=== PATIENT | male | born 1960 | race Asian ===

== ENCOUNTER → 2020-04-20 13:07 | Outpatient (CLI) | payer BC, SELFPAY ==
[2020-04-20] MEDS: COVID-19 VACC #1, MRNA(MOD) 100 MCG/0.5 ML VIAL IM (13:14)
== END ==
PROVIDERS: PCP Family Medicine; Visit Provider Internal Medicine
DX: Z23 Encounter for immunization (principal)
CPT/HCPCS: 0011A; 91301

== ENCOUNTER → 2020-05-17 10:10 | Outpatient (CLI) | payer BC, SELFPAY ==
[2020-05-17] MEDS: COVID-19 VACC #2, MRNA(MOD) 100 MCG/0.5 ML VIAL IM (10:19)
== END ==
PROVIDERS: PCP Family Medicine; Visit Provider Internal Medicine
DX: Z23 Encounter for immunization (principal)
CPT/HCPCS: 0012A; 91301

== ENCOUNTER → 2021-01-22 09:10 | Outpatient (CLI) | payer BC, SELFPAY ==
[2021-01-22 10:09] LABS: COVID19 -Nasal RAPID POSITIVE (Negative)
== END ==
PROVIDERS: PCP Family Medicine; Visit Provider Nurse Practitioner Family
DX: U07.1 COVID-19 (principal)
CPT/HCPCS: 87635

== ENCOUNTER 2023-02-24 18:45 | Emergency (ER) | payer MEDICARE, SELFPAY ==
[2023-02-24 18:50] VITALS: BP 186/84; PULSE 74; RESP 16; TEMP 36.5; O2SAT 95; BMI 28.2
--- NOTE | 2023-02-24 19:05 | ED_ITS ---
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 He is here in the emergency department for evaluation of urinary urgency and frequency and feeling like he is not emptying his bladder completely. No vomiting. He is a lon-xkengme-ogbfwsltc diabetic. No history of urinary tract infections. No abdominal pain. No flank pain. No fevers I did offer the translation line but the patient stated he was comfortable speaking an understanding our conversation. Related Data Previous Rx's Medication Instructions Recorded tamsulosin 0.4 mg capsule (Flomax) 0.4 mg PO DAILY #30 caps 02/24/23 Allergies Allergy/AdvReac Type Severity Reaction Status Date / Time No Known Drug Allergies Allergy Verified 02/24/23 18:58 Review of Systems Constitutional Constitutional: Reports system reviewed and no additional complaints, except as documented Cardiovascular Cardiovascular: Reports system reviewed and no additional complaints, except as documented Gastrointestinal Gastrointestinal: Reports system reviewed and no additional complaints, except as documented Genitourinary Genitourinary: Reports system reviewed and no additional complaints, except as documented Integumentary/Breasts Skin/Breast: Reports system reviewed and no additional complaints, except as documented Neurologic Neurologic: Reports system reviewed and no additional complaints, except as documented Hematologic/Lymphatic On Anticoagulants: No Patient History Medical History COVID-19 Social History Smoking Status: Never smoker Smoking Status: Never smoker Substance Use Type: does not use Exam Initial Vital Signs Initial Vital Signs: Vital Signs Temperature 97.7 F 02/24/23 18:50 Pulse Rate 74 02/24/23 18:50 Respiratory Rate 16 02/24/23 18:50 Blood Pressure 186/84 H 02/24/23 18:50 Pulse Oximetry 95 02/24/23 18:50 Oxygen Delivery Method Room Air 02/24/23 18:50 HENMT Head: normal to inspection and normocephalic Resp Effort & Inspection: normal respiratory effort Cardio Rate: regular rate GI Inspection: normal to inspection and non-distended Palpation: soft, No guarding and tender (Lower abdomen) Back/Spine/Pelvis Back: No CVA tenderness Skin General: no rashes or lesions noted Neuro General: patient alert, patient awake and moves all extremities Course Orders Ordered: ED Orders 02/24/23 19:18 Basic Metabolic Panel Stat Complete Blood Count AUTO DIFF Stat Tamsulosin HCl (Tamsulosin 0.4 Mg Capsule) 0.4 mg PO NOW ONE Stop: 02/24/23 19:53 Vital Signs Vital signs: Vital Signs - 8 hr 02/24/23 18:50 Temperature 97.7 F Pulse Rate 74 Respiratory Rate 16 Blood Pressure 186/84 H Pulse Oximetry 95 Oxygen Delivery Method Room Air Medical Decision Making Lab Data 02/24/23 19:18 02/24/23 19:18 Labs: Lab Results 02/24/23 Range/Units 19:18 WBC 8.6 (4.5-11.0) X10^3/uL RBC 5.12 (4.5-5.9) X10^6/uL Hgb 14.6 (13.5-17.5) g/dL Hct 43.5 (41-53) % MCV 84.9 (80-100) fL MCH 28.5 (26-34) PG MCHC 33.6 (30-36) % RDW 13.5 (11.6-14.8) % Plt Count 233 (150-400) X10^3/uL Neut % (Auto) 59.8 (50-75) % Lymph % (Auto) 28.0 (25-40) % [place] % (Auto) 7.4 (3-14) % Eos % (Auto) 3.6 (2-4) % Baso % (Auto) 1.2 (0-2) % Neut # (Auto) 5200 (4502-5363) /uL Lymph # (Auto) 2400 (8358-6686) /uL [place] # (Auto) 600 (0-900) /uL Eos # (Auto) 300 (0-450) /uL Baso # (Auto) 100 (0-100) /uL Sodium 137 (137-145) mmol/L Potassium 3.7 (3.4-5.1) mmol/L Chloride 100 (98-107) mmol/L Carbon Dioxide 28 (22-32) mmol/L BUN 13 (9-20) mg/dL Creatinine 0.96 (0.66-1.25) mg/dL Estimated GFR > 60 (>60) mL/min BUN/Creatinine Ratio 13.5 (6-22) Glucose 186 H (80-110) mg/dL Calcium 9.6 (8.4-10.2) mg/dL Urine Dip Bedside Urine Glucose 500 mg/dl Bedside Urine Bilirubin - Negative Bedside Urine Ketone - Negative Urine Specific [place] 1.005 Bedside Urine Occult Blood - Negative Bedside Urine pH 6.0 Bedside Urine Protein - Negative Bedside Urine Urobilinogen - Negative Bedside Urine Nitrite - Negative Bedside Urine Leukocytes - Negative Esterase Point of care testing: Urine Dip Bedside Urine Glucose 500 mg/dl Bedside Urine Bilirubin - Negative Bedside Urine Ketone - Negative Urine Specific [place] 1.005 Bedside Urine Occult Blood - Negative Bedside Urine pH 6.0 Bedside Urine Protein - Negative Bedside Urine Urobilinogen - Negative Bedside Urine Nitrite - Negative Bedside Urine Leukocytes - Negative Esterase MDM Narrative Medical decision making narrative: Urinalysis today is not consistent with a urinary tract infection however he was started on antibiotics yesterday by his primary care doctor's office. His labs are unremarkable. He is a known jhv-lulmlew-eaznxakih diabetic. A postvoid residual bladder scan shows between 200 and 300 cc of urine in his bladder. I did discuss this with him. I do not feel that putting a catheter in today would be beneficial. We will start him on Flomax. He was instructed to continue to take his antibiotics. Will have him follow-up with urology. He was given return precautions. He expressed understanding and agreement. Discharge Plan Departure Patient Disposition: Home Clinical Impression: Dysuria Instructions: DI for Dysuria -- Adult Activity Restrictions/Additional Instructions: I recommend that you continue to take the antibiotics that you were started on by your primary doctor. We are going to start a new medicine called Flomax. This medicine was sent to [facility]. Please start taking it tomorrow as directed. Also recommend you contact Urology at the number provided below. Return to the emergency department for new symptoms. Prescriptions: New tamsulosin [Flomax] 0.4 mg capsule 0.4 mg PO DAILY Qty: 30 2RF Referrals: Louise Hannah MD [Physician] - Rosanna Bullock MD [Primary Care Provider] - Stand Alone Forms: Patient Portal/API
[2023-02-24 19:31] LABS: Add Manual Diff / Slide Review NO; Basophils Absolute Auto 100 /uL (0-100); Basophils Percent Auto 1.2 % (0-2); Eosinophils Absolute Auto 300 /uL (0-450); Eosinophils Percent Auto 3.6 % (2-4); Hematocrit 43.5 % (41-53); Hemoglobin 14.6 g/dL (13.5-17.5); Lymphocytes Absolute Auto 2400 /uL (1100-4500); Mean Corpuscular HGB Conc 33.6 % (30-36); Mean Corpuscular Hemoglobin 28.5 PG (26-34); Mean Corpuscular Volume 84.9 fL (80-100); Monocytes Absolute Auto 600 /uL (0-900); Monocytes Percent Auto 7.4 % (3-14); Neutrophils Absolute Auto 5200 /uL (1500-7000); Neutrophils Percent Auto 59.8 % (50-75); Platelet Count 233 X10^3/uL (150-400); Red Blood Cell Count 5.12 X10^6/uL (4.5-5.9); Red Cell Distribution Width 13.5 % (11.6-14.8); White Blood Cell Count 8.6 X10^3/uL (4.5-11.0)
[2023-02-24 19:42] LABS: BUN Creatinine Ratio 13.5 (6-22); Blood Urea Nitrogen 13 mg/dL (9-20); Calcium 9.6 mg/dL (8.4-10.2); Carbon Dioxide 28 mmol/L (22-32); Chloride 100 mmol/L (98-107); Estimated Glomerular Filt Rate > 60 mL/min (>60); Glucose 186 mg/dL (80-110); HEMOLYSIS < 15 (0-50); Potassium 3.7 mmol/L (3.4-5.1); Sodium 137 mmol/L (137-145)
[2023-02-24] MEDS: TAMSULOSIN 0.4 MG CAPSULE PO (19:56)
[2023-02-24 20:00] VITALS: BP 141/79; PULSE 77; RESP 18; O2SAT 96
== END 2023-02-24 20:01 | disposition home or self-care (01) ==
PROVIDERS: Emergency Provider Emergency Medicine; PCP Family Medicine
DX: R30.0 Dysuria (principal); E11.9 Type 2 diabetes mellitus without complications; Z79.4 Long term (current) use of insulin
CPT/HCPCS: 36415; 51798; 80048; 81003; 85025; 99284

== ENCOUNTER → 2023-09-16 09:25 | Outpatient (CLI) | payer MEDICARE, SELFPAY ==
[2023-09-18 11:00] LABS: PSA Free % 13.6 % (.); PSA, Total 6.9 ng/mL (0.0-4.0)
== END ==
PROVIDERS: Referring Provider Specialist; Visit Provider Specialist
DX: R97.20 Elevated prostate specific antigen [PSA] (principal)
CPT/HCPCS: 36415; 84153; 84154

== ENCOUNTER 2023-10-27 16:46 | Inpatient (IN) | payer MEDICARE, SELFPAY ==
[2023-10-27] VITALS (16 sets, daily range): BP systolic 90–154; BP diastolic 55–75; PULSE 101–128; RESP 16–30; TEMP 35.7–39; O2SAT 93–97; BMI 26.6; BMI 27.1
--- NOTE | 2023-10-27 16:54 | DI.RAD.S_ITS ---
PROCEDURE: XR CHEST 1V INDICATIONS: suspected sepsis TECHNIQUE: One view of the chest was acquired. COMPARISON: None. FINDINGS: Surgical changes and devices: None. Lungs and pleura: Lungs are clear. No pleural effusions or pneumothorax. Mediastinum: Mediastinal contours appear normal. Heart size is normal. Bones and chest wall: No suspicious bony lesions. Overlying soft tissues appear unremarkable. IMPRESSION: No acute cardiopulmonary abnormality is seen. Dictated by: Ulises Fox M.D. on 10/27/2023 at 17:48 Approved by: Ulises Fox M.D. on 10/27/2023 at 17:49
--- NOTE | 2023-10-27 17:09 | EKG_ITS ---
[address] [address] Test Date: 2023-10-27 Pat Name: Anthony Chapa Department: [facility] Room: Gender: Male Radiology Director: mary lou : 1960 Requested By: Order Number: [id number] Reading MD: Dae Mata MD Measurements Intervals [place] Rate: 120 P: 20 MO: 126 QRS: 90 QRSD: 92 T: 32 QT: 296 QTc: 418 Interpretive Statements Sinus tachycardia Rightward axis NO PRIOR TRACING Electronically Signed On 10-28-2023 7:45:13 PDT by Dae Mata MD
[2023-10-27] MEDS: SODIUM CHLORIDE 0.9% 1,000 ML 1000 ML IV (17:19)
--- NOTE | 2023-10-27 17:24 | ED.FEVER ---
HPI - Fever General Chief Complaint: Fever Stated Complaint: shaking, cold Time Seen by Provider: 10/27/23 17:07 Related Data Home Medications Medication Instructions Recorded Confirmed tamsulosin 0.4 mg capsule (Flomax) 0.4 mg PO BEDTIME 09/30/23 Allergies Allergy/AdvReac Type Severity Reaction Status Date / Time No Known Drug Allergies Allergy Verified 02/24/23 18:58 Patient History Medical History (Updated 09/30/23 @ 10:51 by Louise Hannah MD) Glucosuria BPH w urinary obs/LUTS Elevated PSA COVID-19 Social History Smoking Status: Never smoker Smoking Status: Never smoker alcohol intake frequency: other Substance Use Type: does not use Exam Initial Vital Signs Initial Vital Signs: Vital Signs Temperature 102.2 F H 10/27/23 16:49 Pulse Rate 128 H 10/27/23 16:49 Respiratory Rate 22 10/27/23 16:49 Blood Pressure 154/75 H 10/27/23 16:49 Pulse Oximetry 96 10/27/23 16:49 Oxygen Delivery Method Room Air 10/27/23 16:49 Course Orders Ordered: ED Orders 10/27/23 16:54 XR chest 1V Stat Blood Culture Stat Complete Blood Count AUTO DIFF Stat Comprehensive Metabolic Panel Stat Lactate (Lactic Acid) Stat Lipase Stat PTT Partial Thromboplastin Yobany Stat Procalcitonin Stat Prothrombin Time INR Stat EKG-12 Lead Stat RT Consult Eval and Treat NOW 10/27/23 17:02 Respiratory Panel (Film Array) Stat Sodium Chloride (Normal Saline 0.9%) 1,000 mls @ 1,000 mls/hr IV BOLUS ONE Stop: 10/27/23 17:53 Last Admin: 10/27/23 17:19 Dose: 1,000 mls/hr Documented By: SB Ondansetron HCl (Ondansetron 4 Mg/2 Ml Inj) 4 mg IV NOW PRN PRN Reason: Nausea And Vomiting Ondansetron HCl (Ondansetron 4 Mg Odt) 4 mg SL NOW PRN PRN Reason: Nausea And Vomiting Vital Signs Vital signs: Vital Signs - 8 hr 10/27/23 16:49 Temperature 102.2 F H Pulse Rate 128 H Respiratory Rate 22 Blood Pressure 154/75 H Pulse Oximetry 96 Oxygen Delivery Method Room Air Discharge Plan Departure Prescriptions: No Action tamsulosin [Flomax] 0.4 mg capsule 0.4 mg PO BEDTIME Referrals: Miscellaneous,Doctor, MD [Primary Care Provider] -
[2023-10-27 17:34] LABS: Add Manual Diff / Slide Review NO; Basophils Absolute Auto 0 /uL (0-100); Basophils Percent Auto 0.9 % (0-2); Eosinophils Absolute Auto 0 /uL (0-450); Eosinophils Percent Auto 0.3 % (2-4); Hematocrit 41.9 % (41-53); Hemoglobin 14.4 g/dL (13.5-17.5); Lymphocytes Absolute Auto 1200 /uL (1100-4500); Lymphocytes Percent Auto 24.3 % (25-40); Mean Corpuscular HGB Conc 34.4 % (30-36); Mean Corpuscular Hemoglobin 29.3 PG (26-34); Monocytes Absolute Auto 0 /uL (0-900); Neutrophils Absolute Auto 3700 /uL (1500-7000); Neutrophils Percent Auto 73.5 % (50-75); Platelet Count 162 X10^3/uL (150-400); Red Blood Cell Count 4.93 X10^6/uL (4.5-5.9); Red Cell Distribution Width 13.3 % (11.6-14.8); White Blood Cell Count 5.1 X10^3/uL (4.5-11.0)
[2023-10-27 17:41] LABS: INR 1.1 (0.9-1.3); Prothrombin Time 12.3 SECONDS (9.4-12.5)
[2023-10-27 17:43] LABS: PTT Partial Thromboplastin Tim 30 SECONDS (25.1-36.5)
[2023-10-27 17:44] LABS: Urine Volume 10mL (spun)
[2023-10-27 17:45] LABS: Bacteria Urine None Seen; RBC Urine 1-5/HPF (0-5/HPF); Squamous Epithelial Cell Urine None Seen (0-5/HPF); WBC Urine None Seen (0-5/HPF)
[2023-10-27 17:50] LABS: Alanine Aminotransferase 89 IU/L (<50); Albumin 4.4 g/dL (3.5-5.0); Albumin Globulin Ratio 1.3 (1.0-2.8); Alkaline Phosphatase 92 U/L (38-126); Aspartate Aminotransferase 73 IU/L (17-59); BUN Creatinine Ratio 13.8 (6-22); Bilirubin Total 1.2 mg/dL (0.2-1.3); Blood Urea Nitrogen 12 mg/dL (9-20); Calcium 9.1 mg/dL (8.4-10.2); Carbon Dioxide 19 mmol/L (22-32); Chloride 104 mmol/L (98-107); Estimated Glomerular Filt Rate > 60 mL/min (>60); Globulin 3.3 g/dL (1.7-4.1); Glucose 176 mg/dL (80-110); HEMOLYSIS < 15 (0-50); Lipase 74 U/L (23-300); Potassium 3.7 mmol/L (3.4-5.1); Sodium 136 mmol/L (137-145); Total Protein 7.7 g/dL (6.3-8.2)
[2023-10-27 18:00] LABS: Lactate (Lactic Acid) 5.1 mmol/L (0.7-2.1)
[2023-10-27 18:07] LABS: Procalcitonin 0.593 ng/mL (<0.5)
[2023-10-27] MEDS: ACETAMINOPHEN IV 1,000 MG/100 ML VIAL 400 MG IV (18:07)
--- NOTE | 2023-10-27 18:07 | ED_ITS ---
HPI - General Adult General Chief complaint: Fever Stated complaint: shaking, cold Time Seen by Provider: 10/27/23 17:07 Source: RN notes reviewed and old records reviewed Mode of arrival: Family Vehicle Limitations: no limitations History of Present Illness HPI narrative: 63-year-old with complaint of chills, fevers and myalgias for the past 3 days. Patient had a home COVID test was negative his daughter at bedside states she has had COVID recently. He had ibuprofen about 4 hours prior to arrival. Patient denies headache or neck pain, no chest pain or shortness of breath he has cough he denies any states no abdominal pain he has felt a little bit bloated. He has had no nausea vomiting. Denies any diarrhea or constipation. Chronic frequency particularly at nighttime but no new changes to urination, no dysuria were sense of urgency that is new. Denies any swelling of extremities. No rash or skin changes. Patient has a history of diabetes, enlarged prostate and dyslipidemia. Has a remote history of hernia repair. No tobacco, alcohol or recreational drugs. No known drug allergies. Follows with primary care at [facility] [place] Related Data Home Medications Medication Instructions Recorded Confirmed tamsulosin 0.4 mg capsule (Flomax) 0.4 mg PO BEDTIME 09/30/23 10/27/23 metformin 1,000 mg tablet 1,000 mg PO DAILY 10/27/23 10/27/23 Allergies Allergy/AdvReac Type Severity Reaction Status Date / Time No Known Drug Allergies Allergy Verified 02/24/23 18:58 Review of Systems Review of Systems ROS Unobtainable: All systems reviewed & are unremarkable except as noted in HPI and below Patient History Medical History (Updated 10/28/23 @ 02:42 by Luis Marshall MD) Diabetes Glucosuria BPH w urinary obs/LUTS Elevated PSA COVID-19 Social History household members: family Smoking Status: Never smoker alcohol intake: former Smoking Status: Never smoker alcohol intake frequency: other Substance Use Type: does not use Exam Narrative Exam Narrative: GEN: well nourished, well appearing male, alert and oriented x 3, patient appears to be in mild distress. Patient is warm to touch. HEENT: Atraumatic, pupils are equal round reactive to light, extraocular movements are intact, nares are clear, TMs are clear with no fluid, there is no conjunctival pallor. Throat is clear without any exudates, erythema, tonsillar enlargement or uvular deviation, no cervical lymphadenopathy, neck is supple with full range of motion, no meningeal signs. HEART: Regular rate and rhythm without murmur, clicks, rubs. Pulses are equal in upper and lower extremities LUNGS:Lungs clear to auscultation, no wheezes, rales, crackles, chest moves symmetrically ABD:bowel sounds normal, soft, nondistended. Non-tender, no guarding, rebound, rigidity, no masses noted, no hepatosplenomegaly :No CVA tenderness MSCL: Non-tender, no muscle atrophy, muscles strength 5/5 upper and lower extremities, full range of motion, normal gait NEURO:CN 2-12 intact, sensation normal. SKIN: No rash, erythema or other skin changes. Initial Vital Signs Initial Vital Signs: Vital Signs Temperature 102.2 F H 10/27/23 16:49 Pulse Rate 128 H 10/27/23 16:49 Respiratory Rate 22 10/27/23 16:49 Blood Pressure 154/75 H 10/27/23 16:49 Pulse Oximetry 96 10/27/23 16:49 Oxygen Delivery Method Room Air 10/27/23 16:49 Course Orders Ordered: Acetaminophen (Acetaminophen 325 Mg Tablet) 650 mg PO Q6H PRN PRN Reason: Fever/Mild Pain (1-3) Last Admin: 10/28/23 18:29 Dose: 650 mg Documented By: Admin: 10/28/23 09:21 Dose: 650 mg Documented By: Admin: 10/28/23 02:16 Dose: 650 mg Documented By: Enoxaparin Sodium (Enoxaparin 40 Mg/0.4 Ml Syringe) 40 mg SUBCUT DAILY [facility] Last Admin: 10/28/23 09:22 Dose: 40 mg Documented By: OSWALDO Sodium Chloride (Normal Saline 0.9%) 1,000 mls @ 100 mls/hr IV CONT ODILIA Last Admin: 10/29/23 01:07 Dose: 100 mls/hr Documented By: Infusion: 10/29/23 01:05 Dose: Infused Documented By: Admin: 10/28/23 14:48 Dose: 100 mls/hr Documented By: Infusion: 10/28/23 12:17 Dose: Infused Documented By: Admin: 10/28/23 02:17 Dose: 100 mls/hr Documented By: Dextrose (D10w) 100 mls @ 1,200 mls/hr IV PRN PRN PRN Reason: Hypoglycemia Cefepime HCl 2 gm/ Sodium (Chloride) 100 mls @ 200 mls/hr IV Q12H [facility] Last Infusion: 10/28/23 17:24 Dose: Infused Documented By: Admin: 10/28/23 16:54 Dose: 200 mls/hr Documented By: Infusion: 10/28/23 06:04 Dose: Infused Documented By: Admin: 10/28/23 05:34 Dose: 200 mls/hr Documented By: Insulin Human Lispro (Insulin Lispro 100 Unit/Ml 3ml Vial) 0 unit SUBCUT ACHS [facility]; Protocol Last Admin: 10/28/23 21:32 Dose: 1 unit Documented By: KENNETH Co-signed By: ROSALEE Admin: 10/28/23 17:04 Dose: 2 unit Documented By: RANGEL Co-signed By: OSWALDO Admin: 10/28/23 12:16 Dose: 2 unit Documented By: RANGEL Co-signed By: OSWALDO Admin: 10/28/23 08:28 Dose: 1 unit Documented By: RANGEL Co-signed By: OSWALDO Ketorolac Tromethamine (Ketorolac 30 Mg/Ml Vial) 15 mg IV Q6H PRN PRN Reason: pain, fever Stop: 11/03/23 01:59 Metformin HCl (Metformin Hcl 500 Mg Tablet) 1,000 mg PO DAILY [facility] Last Admin: 10/28/23 09:21 Dose: 1,000 mg Documented By: OSWALDO Naloxone HCl (Naloxone 0.4 Mg/Ml Vial) 0.2 mg IV Q2MIN PRN PRN Reason: Opiate Reversal Ondansetron HCl (Ondansetron 4 Mg/2 Ml Inj) 4 mg IV NOW PRN PRN Reason: Nausea And Vomiting Ondansetron HCl (Ondansetron 4 Mg/2 Ml Inj) 4 mg IV Q8HR PRN PRN Reason: Nausea And Vomiting Sodium Chloride (Sodium Chloride 0.9% Flush) 10 ml IV BID [facility] Last Admin: 10/28/23 21:37 Dose: 10 ml Documented By: Admin: 10/28/23 09:22 Dose: 10 ml Documented By: OSWALDO Tamsulosin HCl (Tamsulosin 0.4 Mg Capsule) 0.4 mg PO BEDTIME ODILIA Last Admin: 10/28/23 20:43 Dose: 0.4 mg Documented By: Admin: 10/27/23 21:46 Dose: 0.4 mg Documented By: Discontinued Medications Sodium Chloride (Normal Saline 0.9%) 1,000 mls @ 1,000 mls/hr IV BOLUS ONE Stop: 10/27/23 17:53 Last Infusion: 10/27/23 18:10 Dose: Infused Documented By: Admin: 10/27/23 17:19 Dose: 1,000 mls/hr Documented By: SB Acetaminophen (Ofirmev) 1,000 mg in 100 mls @ 400 mls/hr IV NOW ONE Stop: 10/27/23 17:39 Last Infusion: 10/27/23 18:31 Dose: Infused Documented By: Admin: 10/27/23 18:07 Dose: 400 mls/hr Documented By: SB Ceftriaxone Sodium 1,000 mg/ (Sodium Chloride) 100 mls @ 200 mls/hr IV NOW ONE Stop: 10/27/23 18:26 Last Infusion: 10/27/23 19:30 Dose: Infused Documented By: Admin: 10/27/23 18:54 Dose: 200 mls/hr Documented By: SPF Vancomycin HCl (Vancomycin) 1,250 mg in 250 mls @ 250 mls/hr IV NOW ONE Stop: 10/27/23 19:25 Last Infusion: 10/27/23 21:04 Dose: Infused Documented By: Admin: 10/27/23 19:47 Dose: 250 mls/hr Documented By: GC Lactated Ringer's (Lactated Ringers) 2,358 mls @ 786 mls/hr 30 ml/kg infuse over 3 hr (2358 ml) IV NOW ONE Stop: 10/27/23 21:24 Last Admin: 10/27/23 18:53 Dose: 786 mls/hr Documented By: SPF Vancomycin HCl (Vancomycin) 1,000 mg in 200 mls @ 200 mls/hr IV Q12H [facility] Last Admin: 10/28/23 06:17 Dose: 200 mls/hr Documented By: Vancomycin HCl (Vancomycin) 1,250 mg in 250 mls @ 200 mls/hr IV Q12H [facility] Ketorolac Tromethamine (Ketorolac 30 Mg/Ml Vial) 15 mg IV NOW ONE Stop: 10/27/23 18:27 Last Admin: 10/27/23 18:54 Dose: 15 mg Documented By: HENNA Ketorolac Tromethamine (Ketorolac 30 Mg/Ml Vial) 30 mg IV NOW ONE Stop: 10/28/23 20:02 Last Admin: 10/28/23 20:43 Dose: 30 mg Documented By: KENNETH Ondansetron HCl (Ondansetron 4 Mg Odt) 4 mg SL NOW PRN PRN Reason: Nausea And Vomiting Last Admin: 10/28/23 19:31 Dose: 4 mg Documented By: RANGEL Pantoprazole Sodium (Pantoprazole 40 Mg Vial) 40 mg IV NOW ONE Stop: 10/28/23 04:55 Last Admin: 10/28/23 05:34 Dose: 40 mg Documented By: Vancomycin HCl (Vancomycin Per Pharmacy) 1 request MISC NOW PRN PRN Reason: sepsis Vancomycin HCl (Vancomycin Trough) 1 [place] [facility] [place] [facility] Stop: 10/29/23 05:31 Vancomycin HCl (Vancomycin Peak) 1 [place] [facility] [place] [facility] Stop: 10/29/23 08:01 Vital Signs Vital signs: Vital Signs - 8 hr 10/27/23 16:49 10/27/23 16:57 10/27/23 16:57 Temperature 102.2 F H Pulse Rate 128 H 120 H Respiratory Rate 22 30 H Blood Pressure 154/75 H 142/72 H Pulse Oximetry 96 95 Oxygen Delivery Method Room Air 10/27/23 17:00 10/27/23 17:18 10/27/23 17:18 Temperature Pulse Rate 119 H 118 H Respiratory Rate 28 H 28 H Blood Pressure 121/67 Pulse Oximetry 93 94 Oxygen Delivery Method 10/27/23 17:30 10/27/23 17:33 10/27/23 17:33 Temperature Pulse Rate 109 H 115 H Respiratory Rate 19 22 Blood Pressure 112/58 L Pulse Oximetry 93 95 Oxygen Delivery Method 10/27/23 18:00 10/27/23 18:00 10/27/23 18:30 Temperature 99.9 F H Pulse Rate 107 H 104 H Respiratory Rate 21 20 Blood Pressure 107/56 L 96/55 L Pulse Oximetry 96 97 Oxygen Delivery Method 10/27/23 19:05 Temperature Pulse Rate 101 H Respiratory Rate 16 Blood Pressure 97/56 L Pulse Oximetry 95 Oxygen Delivery Method Room Air Medical Decision Making Lab Data 10/28/23 03:22 10/28/23 03:22 Labs: Lab Results 10/27/23 10/27/23 10/27/23 Range/Units 17:00 17:02 17:22 WBC 5.1 (4.5-11.0) X10^3/uL RBC 4.93 (4.5-5.9) X10^6/uL Hgb 14.4 (13.5-17.5) g/dL Hct 41.9 (41-53) % MCV 85.0 (80-100) fL MCH 29.3 (26-34) PG MCHC 34.4 (30-36) % RDW 13.3 (11.6-14.8) % Plt Count 162 (150-400) X10^3/uL Neut % (Auto) 73.5 (50-75) % Lymph % (Auto) 24.3 L (25-40) % Owen % (Auto) 1.0 L (3-14) % Eos % (Auto) 0.3 L (2-4) % Baso % (Auto) 0.9 (0-2) % Neut # (Auto) 3700 (6275-8657) /uL Lymph # (Auto) 1200 (3341-6552) /uL Owen # (Auto) 0 (0-900) /uL Eos # (Auto) 0 (0-450) /uL Baso # (Auto) 0 (0-100) /uL PT 12.3 (9.4-12.5) SECONDS INR 1.1 (0.9-1.3) APTT 30 (25.1-36.5) SECONDS Sodium 136 L (137-145) mmol/L Potassium 3.7 (3.4-5.1) mmol/L Chloride 104 (98-107) mmol/L Carbon Dioxide 19 L (22-32) mmol/L BUN 12 (9-20) mg/dL Creatinine 0.87 (0.66-1.25) mg/dL Estimated GFR > 60 (>60) mL/min BUN/Creatinine Ratio 13.8 (6-22) Glucose 176 H (80-110) mg/dL Lactate 5.1 H* (0.7-2.1) mmol/L Calcium 9.1 (8.4-10.2) mg/dL Total Bilirubin 1.2 (0.2-1.3) mg/dL AST 73 H (17-59) IU/L ALT 89 H (<50) IU/L Alkaline Phosphatase 92 (38-126) U/L Total Protein 7.7 (6.3-8.2) g/dL Albumin 4.4 (3.5-5.0) g/dL Globulin 3.3 (1.7-4.1) g/dL Albumin/Globulin Ratio 1.3 (1.0-2.8) Lipase 74 (23-300) U/L Procalcitonin 0.593 H (<0.5) ng/mL Urine RBC 1-5/hpf (0-5/HPF) Urine WBC None seen (0-5/HPF) Ur Squamous Epith Cells None seen (0-5/HPF) Urine Bacteria None seen (None) Vol Urine Centrifuged 10ml (spun) Chlamy pneumoniae PCR Not detected (Not Detect) Adenovirus (PCR) Not detected (Not Detect) B.parapertussis DNA PCR Not detected (Not Detecte) Coronavirus OC43 (PCR) Not detected (Not Detect) Coronavirus HKU1 (PCR) Not detected (Not Detect) Coronavirus 229E (PCR) Not detected (Not Detect) SARS-CoV-2 (PCR) Not detected (Not Detecte) Coronavirus NL63 (PCR) Not detected (Not Detect) Human Metapneumovir PCR Not detected (Not Detect) Influenza Type A (PCR) Not detected (Not Detect) Influenza Type B (PCR) Not detected (Not Detect) M. pneumoniae (PCR) Not detected (Not Detect) Parainfluenza 1 (PCR) Not detected (Not Detect) Parainfluenza 2 (PCR) Not detected (Not Detect) Parainfluenza 3 (PCR) Not detected (Not Detect) Parainfluenza 4 (PCR) Not detected (Not Detect) RSV (PCR) Not detected (Not Detect) Entero/Rhino (PCR) Not detected (Not Detect) 10/27/23 Range/Units 19:25 WBC (4.5-11.0) X10^3/uL RBC (4.5-5.9) X10^6/uL Hgb (13.5-17.5) g/dL Hct (41-53) % MCV (80-100) fL MCH (26-34) PG MCHC (30-36) % RDW (11.6-14.8) % Plt Count (150-400) X10^3/uL Neut % (Auto) (50-75) % Lymph % (Auto) (25-40) % Owen % (Auto) (3-14) % Eos % (Auto) (2-4) % Baso % (Auto) (0-2) % Neut # (Auto) (5415-9368) /uL Lymph # (Auto) (1162-7520) /uL Owen # (Auto) (0-900) /uL Eos # (Auto) (0-450) /uL Baso # (Auto) (0-100) /uL PT (9.4-12.5) SECONDS INR (0.9-1.3) APTT (25.1-36.5) SECONDS Sodium (137-145) mmol/L Potassium (3.4-5.1) mmol/L Chloride (98-107) mmol/L Carbon Dioxide (22-32) mmol/L BUN (9-20) mg/dL Creatinine (0.66-1.25) mg/dL Estimated GFR (>60) mL/min BUN/Creatinine Ratio (6-22) Glucose (80-110) mg/dL Lactate 2.0 (0.7-2.1) mmol/L Calcium (8.4-10.2) mg/dL Total Bilirubin (0.2-1.3) mg/dL AST (17-59) IU/L ALT (<50) IU/L Alkaline Phosphatase (38-126) U/L Total Protein (6.3-8.2) g/dL Albumin (3.5-5.0) g/dL Globulin (1.7-4.1) g/dL Albumin/Globulin Ratio (1.0-2.8) Lipase (23-300) U/L Procalcitonin (<0.5) ng/mL Urine RBC (0-5/HPF) Urine WBC (0-5/HPF) Ur Squamous Epith Cells (0-5/HPF) Urine Bacteria (None) Vol Urine Centrifuged Chlamy pneumoniae PCR (Not Detect) Adenovirus (PCR) (Not Detect) B.parapertussis DNA PCR (Not Detecte) Coronavirus OC43 (PCR) (Not Detect) Coronavirus HKU1 (PCR) (Not Detect) Coronavirus 229E (PCR) (Not Detect) SARS-CoV-2 (PCR) (Not Detecte) Coronavirus NL63 (PCR) (Not Detect) Human Metapneumovir PCR (Not Detect) Influenza Type A (PCR) (Not Detect) Influenza Type B (PCR) (Not Detect) M. pneumoniae (PCR) (Not Detect) Parainfluenza 1 (PCR) (Not Detect) Parainfluenza 2 (PCR) (Not Detect) Parainfluenza 3 (PCR) (Not Detect) Parainfluenza 4 (PCR) (Not Detect) RSV (PCR) (Not Detect) Entero/Rhino (PCR) (Not Detect) Urine Dip Bedside Urine Glucose 500 mg/dl Bedside Urine Bilirubin - Negative Bedside Urine Ketone +/- 5 Urine Specific Jackson 1.020 Bedside Urine Occult Blood + Bedside Urine pH 6.0 Bedside Urine Protein +/- 15 Bedside Urine Urobilinogen - Negative Bedside Urine Nitrite - Negative Bedside Urine Leukocytes - Negative Esterase Point of care testing: Urine Dip Bedside Urine Glucose 500 mg/dl Bedside Urine Bilirubin - Negative Bedside Urine Ketone +/- 5 Urine Specific Jackson 1.020 Bedside Urine Occult Blood + Bedside Urine pH 6.0 Bedside Urine Protein +/- 15 Bedside Urine Urobilinogen - Negative Bedside Urine Nitrite - Negative Bedside Urine Leukocytes - Negative Esterase Imaging Data Chest x-ray: Radiologist's Impression: [address] [address] XRay Report Signed Patient: Anthony Chapa MR#: [id number] : 1960 Acct:[id number] Age/Sex: 63 / M Date of Service: 10/27/23 Loc: ED Accession Number: [id number] Procedure: XR chest 1V Ordering Provider: Nallely Miranda D.O. PROCEDURE: XR CHEST 1V INDICATIONS: suspected sepsis TECHNIQUE: One view of the chest was acquired. COMPARISON: None. FINDINGS: Surgical changes and devices: None. Lungs and pleura: Lungs are clear. No pleural effusions or pneumothorax. Mediastinum: Mediastinal contours appear normal. Heart size is normal. Bones and chest wall: No suspicious bony lesions. Overlying soft tissues appear unremarkable. IMPRESSION: No acute cardiopulmonary abnormality is seen. Dictated by: Ulises Fox M.D. on 10/27/2023 at 17:48 Approved by: Ulises Fox M.D. on 10/27/2023 at 17:49 ECG Data Attestation: I personally reviewed and interpreted this ECG as follows: Prior ECG tracings: not available for review Interpretation: Sinus tach with a rate of 120 TN 126 QRS of 92 QTC of 418, no acute ST elevation, rightward axis. No priors for comparison. MDM Narrative Medical decision making narrative: Italian speaking fevers, chills, nonproductive cough and myalgias. Patient is febrile tachycardic patient's heart rate was improving with fluids but blood pressure did lower. Patient is warm to the touch but otherwise well-appearing. Does have recent COVID exposure. Patient's CBC shows a white count of 5.1 hemoglobin of 14 platelets of 162 lymphocytes are low. Coags are neg. Sodium is 136 potassium 3.7 chloride 104 CO2 is 19 with a BUN 12 creatinine of 0.87 glucose of 176 with a lactate of 5.1 total bili is 1.2 with an AST of 73 ALT of 89 alk-phos is 92 lipase is 74 protocol 0.593. Patient does not have priors for comparison Point of care urine nitrates or leukocyte esterase small amount blood. Shows microscopy shows 1-5 RBCs no white cells no squamous no bacteria was sent for culture. Blood cultures are pending. Respiratory panel is negative. Chest x-ray shows no acute change. Patient had 1 L bolus somewhat hypotensive and still slightly tachycardic temperature is coming down. Patient had Tylenol, fluids covered with vanco and Rocephin although no clear source, respiratory panel was still pending. Steri panel is negative patient is receiving 30 cc/kilos bolus his tachycardia slowly improving but he has been hypotensive but with a map in the 70s. His lactate is improved but patient was covered with broad-spectrum antibiotics would like to keep overnight for observation. Patient is nontoxic but his vitals are concerning. Spoke with Dr. Marshall who accepts for observation. Discharge Plan Departure Patient Disposition: Admitted As Inpatient Clinical Impression: SIRS (systemic inflammatory response syndrome) Admit Date/Time: 10/27/23 19:56 Admit Provider: Luis Templeton
[2023-10-27 18:23] LABS: Adenovirus Not Detected (Not Detect); B. parapertussis Not Detected (Not Detecte); Bordetella pertussis Not Detected (Not Detect); Chlamydophila pneumoniae Not Detected (Not Detect); Coronavirus 229E Not Detected (Not Detect); Coronavirus HKU1 Not Detected (Not Detect); Coronavirus NL 63 Not Detected (Not Detect); Coronavirus OC43 Not Detected (Not Detect); Human Metapneumovirus Not Detected (Not Detect); Human Rhinovirus/Enterovirus Not Detected (Not Detect); Influenza A Not Detected (Not Detect); Influenza B Not Detected (Not Detect); Mycoplasma pneumoniae Not Detected (Not Detect); Parainfluenza Virus 1 Not Detected (Not Detect); Parainfluenza Virus 2 Not Detected (Not Detect); Parainfluenza Virus 3 Not Detected (Not Detect); Parainfluenza Virus 4 Not Detected (Not Detect); Respiratory Syncytial Virus Not Detected (Not Detect); SARS- CoV-2 Not Detected (Not Detecte)
[2023-10-27] MEDS: LACTATED RINGERS 786 ML IV (18:53)
[2023-10-27] MEDS: KETOROLAC 30 MG/ML VIAL 15 MG IV (18:54)
[2023-10-27] MEDS: cefTRIAXone 1,000 MG in SODIUM CHLORIDE 0.9% 100 ML 200 MG IV (18:54)
[2023-10-27 19:05] LABS: Reflexed Lactate in 2 Hours Y
[2023-10-27] MEDS: VANCOMYCIN 1,250 MG/250 ML PIGGYBACK 250 MG IV (19:47)
[2023-10-27] MEDS: TAMSULOSIN 0.4 MG CAPSULE PO (21:46)
--- NOTE | 2023-10-27 21:47 | PM.HP.1 ---
History of Present Illness History of Present Illness Date Patient Seen: 10/27/23 Time Patient Seen: 21:15 Chief complaint: shaking, cold Narrative: 63 y/o with PMH of DM, BPH on Flomax, developed generalized weakness, myalgia and fever and chills over the past 3 days. He was exposed to daughter who was sick with Covid but on admission respiratory panel is negative. He is tachycardic and hypotensive with elevated LA and procalcitonin and w/o obvious source. Denies GI or symptoms. He was treated with IVFs and empiric abx and was placed in observation [facility] Medical History (Updated 10/28/23 @ 02:42 by Luis Marshall MD) Diabetes Glucosuria BPH w urinary obs/LUTS Elevated PSA COVID-19 Social History household members: family Smoking Status: Never smoker alcohol intake: former Meds Home Medications and Allergies Home Medications Medication Instructions Recorded Confirmed Type tamsulosin 0.4 mg capsule (Flomax) 0.4 mg PO BEDTIME 09/30/23 10/27/23 History metformin 1,000 mg tablet 1,000 mg PO DAILY 10/27/23 10/27/23 History Allergies Allergy/AdvReac Type Severity Reaction Status Date / Time No Known Drug Allergies Allergy Verified 02/24/23 18:58 Review of Systems Constitutional Comments: generalized weakness, fever, chills Respiratory Comments: w/o cough or shortness of breath Gastrointestinal Comments: w/o nausea, diarreha, abdominal pain Genitourinary Comments: w/o dysuria Musculoskeletal Comments: mylalgia Exam Vital Signs (past 8 hours): - 10/27/23 16:49 10/27/23 16:57 10/27/23 16:57 Temperature 102.2 F H Pulse Rate 128 H 120 H Respiratory Rate 22 30 H Blood Pressure 154/75 H 142/72 H Pulse Oximetry 96 95 Oxygen Delivery Method Room Air 10/27/23 17:00 10/27/23 17:18 10/27/23 17:18 Temperature Pulse Rate 119 H 118 H Respiratory Rate 28 H 28 H Blood Pressure 121/67 Pulse Oximetry 93 94 Oxygen Delivery Method 10/27/23 17:30 10/27/23 17:33 10/27/23 17:33 Temperature Pulse Rate 109 H 115 H Respiratory Rate 19 22 Blood Pressure 112/58 L Pulse Oximetry 93 95 Oxygen Delivery Method 10/27/23 18:00 10/27/23 18:00 10/27/23 18:30 Temperature 99.9 F H Pulse Rate 107 H 104 H Respiratory Rate 21 20 Blood Pressure 107/56 L 96/55 L Pulse Oximetry 96 97 Oxygen Delivery Method 10/27/23 19:05 10/27/23 19:15 10/27/23 19:30 Temperature 98.3 F Pulse Rate 101 H 101 H 103 H Respiratory Rate 16 17 20 Blood Pressure 97/56 L 100/58 L 96/55 L Pulse Oximetry 95 96 96 Oxygen Delivery Method Room Air Room Air 10/27/23 19:45 10/27/23 20:00 10/27/23 20:00 Temperature Pulse Rate 103 H Respiratory Rate 20 Blood Pressure 96/55 L 97/56 L Pulse Oximetry 97 Oxygen Delivery Method 10/27/23 20:51 Temperature 96.3 F L Pulse Rate 105 H Respiratory Rate 18 Blood Pressure 90/59 L Pulse Oximetry 94 Oxygen Delivery Method Oxygen Delivery Method Room Air Const Other: in no distress, daughter at bedside HENMT Other: normocephalic Neck Other: supple Resp Other: normal respiratory effort Cardio Other: tachycardic, regular GI Other: not distended or tender Skin Other: w/o rashes Psych Other: appropriate mood Objective ECG Impression: Sinus tachycardia Labs 10/27/23 17:02 10/27/23 17:02 Labs: Laboratory Results - last 24 hr 10/27/23 10/27/23 10/27/23 17:00 17:02 17:22 WBC 5.1 RBC 4.93 Hgb 14.4 Hct 41.9 MCV 85.0 MCH 29.3 MCHC 34.4 RDW 13.3 Plt Count 162 Neut % (Auto) 73.5 Lymph % (Auto) 24.3 L O'Brien % (Auto) 1.0 L Eos % (Auto) 0.3 L Baso % (Auto) 0.9 Neut # (Auto) 3700 Lymph # (Auto) 1200 O'Brien # (Auto) 0 Eos # (Auto) 0 Baso # (Auto) 0 PT 12.3 INR 1.1 APTT 30 Sodium 136 L Potassium 3.7 Chloride 104 Carbon Dioxide 19 L BUN 12 Creatinine 0.87 Estimated GFR > 60 BUN/Creatinine Ratio 13.8 Glucose 176 H Lactate 5.1 H* Calcium 9.1 Total Bilirubin 1.2 AST 73 H ALT 89 H Alkaline Phosphatase 92 Total Protein 7.7 Albumin 4.4 Globulin 3.3 Albumin/Globulin Ratio 1.3 Lipase 74 Procalcitonin 0.593 H Urine RBC 1-5/hpf Urine WBC None seen Ur Squamous Epith Cells None seen Urine Bacteria None seen Vol Urine Centrifuged 10ml (spun) Chlamy pneumoniae PCR Not detected Adenovirus (PCR) Not detected B.parapertussis DNA PCR Not detected Coronavirus OC43 (PCR) Not detected Coronavirus HKU1 (PCR) Not detected Coronavirus 229E (PCR) Not detected SARS-CoV-2 (PCR) Not detected Coronavirus NL63 (PCR) Not detected Human Metapneumovir PCR Not detected Influenza Type A (PCR) Not detected Influenza Type B (PCR) Not detected M. pneumoniae (PCR) Not detected Parainfluenza 1 (PCR) Not detected Parainfluenza 2 (PCR) Not detected Parainfluenza 3 (PCR) Not detected Parainfluenza 4 (PCR) Not detected RSV (PCR) Not detected Entero/Rhino (PCR) Not detected 10/27/23 19:25 WBC RBC Hgb Hct MCV MCH MCHC RDW Plt Count Neut % (Auto) Lymph % (Auto) O'Brien % (Auto) Eos % (Auto) Baso % (Auto) Neut # (Auto) Lymph # (Auto) O'Brien # (Auto) Eos # (Auto) Baso # (Auto) PT INR APTT Sodium Potassium Chloride Carbon Dioxide BUN Creatinine Estimated GFR BUN/Creatinine Ratio Glucose Lactate 2.0 Calcium Total Bilirubin AST ALT Alkaline Phosphatase Total Protein Albumin Globulin Albumin/Globulin Ratio Lipase Procalcitonin Urine RBC Urine WBC Ur Squamous Epith Cells Urine Bacteria Vol Urine Centrifuged Chlamy pneumoniae PCR Adenovirus (PCR) B.parapertussis DNA PCR Coronavirus OC43 (PCR) Coronavirus HKU1 (PCR) Coronavirus 229E (PCR) SARS-CoV-2 (PCR) Coronavirus NL63 (PCR) Human Metapneumovir PCR Influenza Type A (PCR) Influenza Type B (PCR) M. pneumoniae (PCR) Parainfluenza 1 (PCR) Parainfluenza 2 (PCR) Parainfluenza 3 (PCR) Parainfluenza 4 (PCR) RSV (PCR) Entero/Rhino (PCR) Assessment & Plan Assessment and plan (1) SIRS (systemic inflammatory response syndrome): Status: Acute (2) BPH w urinary obs/LUTS: Status: Acute (3) Diabetes: Status: Acute Assessment & Plan narrative: SIRS - r/o sepsis - given dose of Rocephin and Vancomycin in the ED in addition to IVFs - telemetry monitoring BPH - Flomax DM - metformin, SS, CCD DVT prophylaxis - Lovenox Time-Based Coding :: [TOTAL MINUTES] spent with patient and on the chart (including review of chart, obtaining history, exam, reviewing outside data, placing orders, documenting exam and treatment plan, and counseling patient) on [DATE]. Quality VTE Deep Vein Thrombosis/Pulmonary Embolism Present on Admission: No
[2023-10-27 23:34] LABS: MRSA (Nasal) PCR NOT DETECTED (Not Detect)
[2023-10-28] VITALS (9 sets, daily range): BP systolic 95–146; BP diastolic 59–70; PULSE 75–94; RESP 17–28; TEMP 35.7–39.6; O2SAT 93–97
[2023-10-28] MEDS: ACETAMINOPHEN 325 MG TABLET 650 MG PO ×3 (02:16→18:29)
[2023-10-28] MEDS: SODIUM CHLORIDE 0.9% 1,000 ML 100 ML IV ×2 (02:17→14:48)
[2023-10-28 03:59] LABS: Add Manual Diff / Slide Review NO; Basophils Absolute Auto 0 /uL (0-100); Basophils Percent Auto 0.3 % (0-2); Eosinophils Absolute Auto 100 /uL (0-450); Eosinophils Percent Auto 0.4 % (2-4); Hematocrit 37.6 % (41-53); Hemoglobin 12.7 g/dL (13.5-17.5); Lymphocytes Absolute Auto 1000 /uL (1100-4500); Lymphocytes Percent Auto 6.7 % (25-40); Mean Corpuscular HGB Conc 33.7 % (30-36); Mean Corpuscular Hemoglobin 28.7 PG (26-34); Mean Corpuscular Volume 85.2 fL (80-100); Monocytes Absolute Auto 800 /uL (0-900); Monocytes Percent Auto 5.1 % (3-14); Neutrophils Absolute Auto 13300 /uL (1500-7000); Neutrophils Percent Auto 87.5 % (50-75); Platelet Count 146 X10^3/uL (150-400); Red Blood Cell Count 4.41 X10^6/uL (4.5-5.9); Red Cell Distribution Width 13.2 % (11.6-14.8); White Blood Cell Count 15.2 X10^3/uL (4.5-11.0)
[2023-10-28 04:18] LABS: Blood Urea Nitrogen 15 mg/dL (9-20); Calcium 8.1 mg/dL (8.4-10.2); Carbon Dioxide 25 mmol/L (22-32); Chloride 106 mmol/L (98-107); Estimated Glomerular Filt Rate > 60 mL/min (>60); Glucose 196 mg/dL (80-110); HEMOLYSIS < 15 (0-50); Potassium 3.6 mmol/L (3.4-5.1); Sodium 136 mmol/L (137-145)
--- NOTE | 2023-10-28 04:52 | DI.CT.S_ITS ---
PROCEDURE: CT ABDOMEN PELVIS W CON INDICATIONS: abdominal pain, sepsis TECHNIQUE: After the administration of intravenous contrast, axial sections acquired from the lung bases to the pubic symphysis. Coronal and sagittal reformats were performed. For radiation dose reduction, the following was used: automated exposure control, adjustment of mA and/or kV according to patient size. COMPARISON: None. FINDINGS: Image quality: Diagnostic. Lower Chest: No significant findings. ABDOMEN: Liver: Low-density lesion within the right hepatic lobe measuring 4.8 cm. Gallbladder: No radiopaque gallstones or wall thickening. Biliary ducts: No biliary dilation. Pancreas: No ductal dilation. Spleen: Size is within normal limits. Adrenal Glands: No adrenal nodules. Kidneys and Ureters: No hydronephrosis. No solid mass. No complex renal cystic lesion which requires follow up. Stomach and Bowel: Normal colonic caliber, without significant wall thickening. Diverticulosis without evidence of diverticulitis. Normal appendix. Peritoneum: No abnormal intraperitoneal fluid. No free air. Ventral Wall: No significant ventral hernia. Abdominal Nodes: No retroperitoneal or mesenteric adenopathy by size criteria. Vessels: Aorta and inferior vena cava are normal in size. Atherosclerotic vascular calcifications. PELVIS: Pelvic Organs: Prostate is enlarged. Bladder: No bladder wall thickening, accounting for underdistention. Pelvic Nodes: No enlarged lymph nodes. Miscellaneous: No inguinal hernias are seen. Bones: No aggressive osseous abnormality. Degenerative changes of the spine. IMPRESSION: 1. No acute findings within the abdomen or pelvis to explain patient's symptoms. 2. Diverticulosis without evidence of acute diverticulitis. Normal appendix. 3. Indeterminate low-attenuation structure within the right hepatic lobe measuring 4.8 cm. This may represent a meningioma. Recommend contrast enhanced MRI liver protocol for further evaluation. Findings are concordant with preliminary interpretation provided by [facility]. Dictated by: Holden Yeboah M.D. on 10/28/2023 at 14:41 Approved by: Holden Yeboah M.D. on 10/28/2023 at 14:43
[2023-10-28] MEDS: PANTOPRAZOLE 40 MG VIAL IV (05:34)
[2023-10-28] MEDS: CEFEPIME 2 GM in SODIUM CHLORIDE 0.9% 100 ML IV ×2 (05:34→16:54)
[2023-10-28] MEDS: VANCOMYCIN 1,000 MG/200 ML PIGGYBACK 200 MG IV (06:17)
[2023-10-28 06:41] LABS: Lactate (Lactic Acid) 2.1 mmol/L (0.7-2.1)
--- NOTE | 2023-10-28 06:41 | PC.NURSE ---
pt arrived from ER via stretcher, ambulated to bed slightly unsteady, A&Ox4, lebanese speaking but understands most korean, daughter at bedside overnight to interpret, hypotensive, afebrile, SR/ST 80-100s, lungs clear, O2 sats >92% on RA, abd soft with BS, voiding clear urine in urinal, initially no pain, then c/o pain in abd in am, chills and rigors noted, tylenol with no effect, WBCs increased, MD notified and pt sent for abd CT scan, and antibiotics given, call neal within reach, continue to monitor
[2023-10-28 07:46] LABS: Reflexed Lactate in 2 Hours Y
[2023-10-28 08:24] LABS: Lactate 2HR (Lactic Acid Rflx) 1.7 mmol/L (0.7-2.1)
[2023-10-28] MEDS: INSULIN LISPRO 100 UNIT/ML 3ML VIAL SUBCUT ×4 (08:28→21:32)
[2023-10-28] MEDS: METFORMIN HCL 500 MG TABLET 1000 MG PO (09:21)
[2023-10-28] MEDS: ENOXAPARIN 40 MG/0.4 ML SYRINGE SUBCUT (09:22)
[2023-10-28] MEDS: SODIUM CHLORIDE 0.9% FLUSH 10 ML IV ×2 (09:22→21:37)
--- NOTE | 2023-10-28 14:10 | CM.DANOTE ---
Initial DCP Assessment Note Pt is a 63yo male, Armenian speaking, resident of [place], arrives feeling ill, shaking, fever admitted for further work up and medical management. PCP: Follows with primary care at [facility] Payer: Michael NORIEGA Reviewed chart, pt discussed in multidisciplinary rounds this morning. Daughter with recent COVID infection, patient is currently COVID Neg. Patient lives independently with family, currently moving indp in room. No barriers identified at this time to patient's safe discharge home w/family to assist; close outpatient f/u recommended. CM team will plan to follow closely in case any DC needs or concerns arise. SAMIR Parisi Discharge Planning/Care Management CM Discharge Assessment Start: 10/28/23 14:08 Freq: Status: Active Protocol: Document 10/28/23 14:08 ELIOT (Rec: 10/28/23 14:10 ELIOT [id number]) Discharge Planning Assessment Assigned Scrap Dealer SMAIR Mcclendon DPOA/Assigned Designee Name winnie Alex Contact Information [phone] Advance Directives? No History Provided By Patient,Family Member,Medical Record Prior Living Arrangements House Household Members family Type of transporation used prior to Drives own vehicle admit Independent with ADL's Yes Is patient alert and oriented? Yes Needs Assistance With Meal Prep,Home Chores / Shopping Barriers to Discharge No Comment Home w/family anticipated Discharge Plan Home Transportation Arrangement Family Referrals Initiated None needed
--- NOTE | 2023-10-28 15:19 | PM.PN.1 ---
Subjective Subjective Interval history: 63 M admitted with fever, rule out sepsis. On CT bladder wall is thickened, there is a hepatic probable hemangioma, but no other possilbe source for infection. Cultures on pending. He feels much improved today on cefepime. No nausea, vomiting today, has had intermittent lower abdominal pain the last few days. Exam Vital Signs (past 8 hours): - 10/28/23 12:00 Temperature 98.9 F Pulse Rate 81 Respiratory Rate 18 Blood Pressure 99/62 Pulse Oximetry 95 Oxygen Delivery Method Room Air Narrative Exam Narrative: Gen: WDWN male, NAD CV: RRR no m/r/g Pulm: CTA b/l Abd: S NT ND Ext: no edema. Objective Labs 10/28/23 03:22 10/28/23 03:22 Labs: Laboratory Results - last 24 hr 10/27/23 10/27/23 10/27/23 17:00 17:02 17:22 WBC 5.1 RBC 4.93 Hgb 14.4 Hct 41.9 MCV 85.0 MCH 29.3 MCHC 34.4 RDW 13.3 Plt Count 162 Neut % (Auto) 73.5 Lymph % (Auto) 24.3 L [place] % (Auto) 1.0 L Eos % (Auto) 0.3 L Baso % (Auto) 0.9 Neut # (Auto) 3700 Lymph # (Auto) 1200 [place] # (Auto) 0 Eos # (Auto) 0 Baso # (Auto) 0 PT 12.3 INR 1.1 APTT 30 Sodium 136 L Potassium 3.7 Chloride 104 Carbon Dioxide 19 L BUN 12 Creatinine 0.87 Estimated GFR > 60 BUN/Creatinine Ratio 13.8 Glucose 176 H Lactate 5.1 H* Calcium 9.1 Total Bilirubin 1.2 AST 73 H ALT 89 H Alkaline Phosphatase 92 Total Protein 7.7 Albumin 4.4 Globulin 3.3 Albumin/Globulin Ratio 1.3 Lipase 74 Procalcitonin 0.593 H Urine RBC 1-5/hpf Urine WBC None seen Ur Squamous Epith Cells None seen Urine Bacteria None seen Vol Urine Centrifuged 10ml (spun) Nasal Screen MRSA (PCR) Chlamy pneumoniae PCR Not detected Adenovirus (PCR) Not detected B.parapertussis DNA PCR Not detected Coronavirus OC43 (PCR) Not detected Coronavirus HKU1 (PCR) Not detected Coronavirus 229E (PCR) Not detected SARS-CoV-2 (PCR) Not detected Coronavirus NL63 (PCR) Not detected Human Metapneumovir PCR Not detected Influenza Type A (PCR) Not detected Influenza Type B (PCR) Not detected M. pneumoniae (PCR) Not detected Parainfluenza 1 (PCR) Not detected Parainfluenza 2 (PCR) Not detected Parainfluenza 3 (PCR) Not detected Parainfluenza 4 (PCR) Not detected RSV (PCR) Not detected Entero/Rhino (PCR) Not detected 10/27/23 10/27/23 10/28/23 19:25 21:00 03:22 WBC 15.2 H D RBC 4.41 L Hgb 12.7 L Hct 37.6 L MCV 85.2 MCH 28.7 MCHC 33.7 RDW 13.2 Plt Count 146 L Neut % (Auto) 87.5 H Lymph % (Auto) 6.7 L [place] % (Auto) 5.1 Eos % (Auto) 0.4 L Baso % (Auto) 0.3 Neut # (Auto) 58103 H Lymph # (Auto) 1000 L [place] # (Auto) 800 Eos # (Auto) 100 Baso # (Auto) 0 PT INR APTT Sodium 136 L Potassium 3.6 Chloride 106 Carbon Dioxide 25 BUN 15 Creatinine 0.79 Estimated GFR > 60 BUN/Creatinine Ratio 19.0 Glucose 196 H Lactate 2.0 Calcium 8.1 L Total Bilirubin AST ALT Alkaline Phosphatase Total Protein Albumin Globulin Albumin/Globulin Ratio Lipase Procalcitonin Urine RBC Urine WBC Ur Squamous Epith Cells Urine Bacteria Vol Urine Centrifuged Nasal Screen MRSA (PCR) Not detected Chlamy pneumoniae PCR Adenovirus (PCR) B.parapertussis DNA PCR Coronavirus OC43 (PCR) Coronavirus HKU1 (PCR) Coronavirus 229E (PCR) SARS-CoV-2 (PCR) Coronavirus NL63 (PCR) Human Metapneumovir PCR Influenza Type A (PCR) Influenza Type B (PCR) M. pneumoniae (PCR) Parainfluenza 1 (PCR) Parainfluenza 2 (PCR) Parainfluenza 3 (PCR) Parainfluenza 4 (PCR) RSV (PCR) Entero/Rhino (PCR) 10/28/23 10/28/23 05:55 08:03 WBC RBC Hgb Hct MCV MCH MCHC RDW Plt Count Neut % (Auto) Lymph % (Auto) [place] % (Auto) Eos % (Auto) Baso % (Auto) Neut # (Auto) Lymph # (Auto) [place] # (Auto) Eos # (Auto) Baso # (Auto) PT INR APTT Sodium Potassium Chloride Carbon Dioxide BUN Creatinine Estimated GFR BUN/Creatinine Ratio Glucose Lactate 2.1 1.7 Calcium Total Bilirubin AST ALT Alkaline Phosphatase Total Protein Albumin Globulin Albumin/Globulin Ratio Lipase Procalcitonin Urine RBC Urine WBC Ur Squamous Epith Cells Urine Bacteria Vol Urine Centrifuged Nasal Screen MRSA (PCR) Chlamy pneumoniae PCR Adenovirus (PCR) B.parapertussis DNA PCR Coronavirus OC43 (PCR) Coronavirus HKU1 (PCR) Coronavirus 229E (PCR) SARS-CoV-2 (PCR) Coronavirus NL63 (PCR) Human Metapneumovir PCR Influenza Type A (PCR) Influenza Type B (PCR) M. pneumoniae (PCR) Parainfluenza 1 (PCR) Parainfluenza 2 (PCR) Parainfluenza 3 (PCR) Parainfluenza 4 (PCR) RSV (PCR) Entero/Rhino (PCR) [facility] Medical History (Updated 10/28/23 @ 02:42 by Luis Marshall MD) Diabetes Glucosuria BPH w urinary obs/LUTS Elevated PSA COVID-19 Social History household members: family Smoking Status: Never smoker alcohol intake: former Assessment & Plan Assessment & Plan narrative: (1) Sepsis secondary to acute cystitis with hypotension and thrombocytopenia, borderline elevated bilirubin. - urine and blood cultures pending. Respriatory panel negative. No obvious signs currently but lower abdominal pain, 1-5 RBC on UA, and bladder wall thickening with BPH suggests acute cystitis as the underlying etiology - follow up cultures - continue cefepime 2g q12 for now, narrow if able depending on culture data - continue IV fluids today, BP soft. - WBC did increase from normal to 15 today. Procalcitonin elevated. - also with daughter with COVID, may be false negative result, consider retesting after 48 hours. (2) BPH w urinary obs/LUTS: - continue flomax (3) Diabetes: - okay to continue metformin, low dose sliding scale insulin also ordered. Code: Full, surrogate is patient's daughter DVT: Lovenox daily I have utilized all available immediate resources to obtain, update, or review the patient's current medications. Dispo: patient admitted under inpatient status. Likely discharge home 1-2 days depending on improvement. Additional history obtained via discussions with the overnight provider, bedside nursing staff, and case management. These discussions contributed to the creation of the above assessment and plan. I have reviewed patient's presenting documentation, labs, and imaging personally. Time-Based Coding :: [TOTAL MINUTES] spent with patient and on the chart (including review of chart, obtaining history, exam, reviewing outside data, placing orders, documenting exam and treatment plan, and counseling patient) on [DATE]. Scores SOFA PaO2/FIO2: >=400 mmHg Platelets: < 150 Bilirubin: 1.2-1.9 mg/dL Hypotension: MAP < 70 mmHg Kvng Coma Scale: 15 Renal: < 1.2 mg/dL SOFA Score: 3 Quality VTE Deep Vein Thrombosis/Pulmonary Embolism Present on Admission: No
[2023-10-28] MEDS: ONDANSETRON 4 MG ODT SL (19:31)
[2023-10-28] MEDS: TAMSULOSIN 0.4 MG CAPSULE PO (20:43)
[2023-10-28] MEDS: KETOROLAC 30 MG/ML VIAL IV (20:43)
[2023-10-29] VITALS (9 sets, daily range): BP systolic 112–152; BP diastolic 56–79; PULSE 65–75; RESP 16–18; TEMP 37–38.9; O2SAT 93–97
--- NOTE | 2023-10-29 | DI.MRI.S_ITS ---
PROCEDURE: MR ABDOMEN LIVER PROTOCOL INDICATIONS: liver lesion, fever, rising ast/alt bili TECHNIQUE: Coronal HASTE, axial 2D FLASH in- and [id number]; axial breath-hold T2 FSE. Dynamic axial VIBE during the administration of contrast; post-contrast coronal VIBE or 2D FLASH with fat saturation from the hepatic dome to the iliac crests. Restricted diffusion weighted imaging and ADC. COMPARISON: [facility], US, US ABDOMEN LIMITED, 10/29/2023, 11:55. [facility], CT, CT ABDOMEN PELVIS W CON, 10/28/2023, 5:00. FINDINGS: Image quality: Diagnostic. Lung bases: Small right pleural effusion, increased. Liver: Heterogeneous T2 hyperintense abnormality in the right liver measuring 5 x 3.8 cm, (4/17), 4.3 x 4 cm. There is corresponding T1 hypointense signal and heterogeneous restricted diffusion. There is peripheral enhancement with central heterogeneous enhancement. This could represent a hepatic abscess. Lesion does not have the typical appearance of a benign hemangioma. Gallbladder: Decompressed. Possible trace pericholecystic fluid. Biliary ducts: No biliary dilation. Pancreas: No ductal dilation. Spleen: Size is within normal limits. Adrenal Glands: No adrenal nodules. Kidneys and Ureters: No hydronephrosis. No solid mass. No complex renal cystic lesion which requires follow up. Stomach and Bowel: Normal colonic caliber, without significant wall thickening. The appendix is not dilated. Diverticulosis. Peritoneum: No abnormal intraperitoneal fluid. No free air. Ventral Wall: No hernia. Abdominal Nodes: No retroperitoneal or mesenteric adenopathy by size criteria. Vessels: Aorta and inferior vena cava are normal in size. Bones: No aggressive osseous abnormality. IMPRESSION: 1. T2 heterogeneous lesion in the right liver with peripheral enhancement and restricted diffusion. Suspect hepatic phlegmon or developing abscess in this patient with sepsis. 2. Small right pleural effusion, increased. 3. Diverticulosis. The appendix is not dilated. Comment: Unable to reach Dr. Dias. Message left with nurse's station at time of dictation. Dictated by: Ulises Fox M.D. on 10/29/2023 at 15:52 Approved by: Ulises Fox M.D. on 10/29/2023 at 16:10
[2023-10-29] MEDS: SODIUM CHLORIDE 0.9% 1,000 ML 100 ML IV ×2 (01:07→11:52)
[2023-10-29] MEDS: CEFEPIME 2 GM in SODIUM CHLORIDE 0.9% 100 ML IV ×2 (05:04→16:54)
--- NOTE | 2023-10-29 06:22 | PC.NURSE ---
At start of shift pt reported nausea and abd pain. Given zofran and toradol with good results. Able to eat and sleep. This AM stated, I feel good
[2023-10-29 06:32] LABS: Vancomycin Trough < 5.0 ug/mL (10-20)
[2023-10-29] MEDS: INSULIN LISPRO 100 UNIT/ML 3ML VIAL SUBCUT ×4 (08:03→21:43)
[2023-10-29 08:36] LABS: Vancomycin Peak < 5.0 ug/mL (20-40)
[2023-10-29] MEDS: SODIUM CHLORIDE 0.9% FLUSH 10 ML IV ×2 (08:46→21:44)
[2023-10-29] MEDS: ENOXAPARIN 40 MG/0.4 ML SYRINGE SUBCUT (08:46)
[2023-10-29] MEDS: METFORMIN HCL 500 MG TABLET 1000 MG PO (08:46)
[2023-10-29 09:24] LABS: Add Manual Diff / Slide Review NO; Basophils Absolute Auto 100 /uL (0-100); Basophils Percent Auto 0.5 % (0-2); Eosinophils Absolute Auto 200 /uL (0-450); Eosinophils Percent Auto 1.1 % (2-4); Hematocrit 37.7 % (41-53); Hemoglobin 12.4 g/dL (13.5-17.5); Lymphocytes Absolute Auto 1100 /uL (1100-4500); Lymphocytes Percent Auto 7.7 % (25-40); Mean Corpuscular Hemoglobin 28.6 PG (26-34); Mean Corpuscular Volume 86.7 fL (80-100); Monocytes Absolute Auto 1100 /uL (0-900); Neutrophils Absolute Auto 11500 /uL (1500-7000); Neutrophils Percent Auto 82.7 % (50-75); Platelet Count 117 X10^3/uL (150-400); Red Blood Cell Count 4.35 X10^6/uL (4.5-5.9); Red Cell Distribution Width 13.4 % (11.6-14.8); White Blood Cell Count 13.9 X10^3/uL (4.5-11.0)
[2023-10-29 09:30] LABS: Alanine Aminotransferase 278 IU/L (<50); Albumin 3.4 g/dL (3.5-5.0); Albumin Globulin Ratio 1.2 (1.0-2.8); Alkaline Phosphatase 136 U/L (38-126); Aspartate Aminotransferase 180 IU/L (17-59); Bilirubin Total 1.4 mg/dL (0.2-1.3); Blood Urea Nitrogen 13 mg/dL (9-20); Calcium 8.5 mg/dL (8.4-10.2); Carbon Dioxide 24 mmol/L (22-32); Chloride 107 mmol/L (98-107); Estimated Glomerular Filt Rate > 60 mL/min (>60); Globulin 2.8 g/dL (1.7-4.1); Glucose 236 mg/dL (80-110); HEMOLYSIS < 15 (0-50); Magnesium 2.3 mg/dL (1.6-2.3); Potassium 3.7 mmol/L (3.4-5.1); Sodium 136 mmol/L (137-145); Total Protein 6.2 g/dL (6.3-8.2)
--- NOTE | 2023-10-29 10:31 | DI.US.S_ITS ---
PROCEDURE: US ABDOMEN LIMITED INDICATIONS: RUQ pain, rising bili, assess biliary tree / liver lesion TECHNIQUE: Real-time scanning was performed of the abdominal and retroperitoneal organs, with image documentation. COMPARISON: [facility], CT, CT ABDOMEN PELVIS W CON, 10/28/2023, 5:00. FINDINGS: Liver: Ill-defined cystic/solid in the right hepatic lobe with calcifications measuring 5 x 4.3 x 3.9 cm. Liver parenchyma is heterogeneous, notably in the right hepatic lobe. Gallbladder: Liver is decompressed with wall thickening measuring 8 mm and trace pericholecystic fluid. Biliary ducts: Intrahepatic bile ducts are non-dilated. Extrahepatic bile duct caliber measures 4 mm. Normal is 6-7 mm or less in diameter, or 10 mm or less post-cholecystectomy. Pancreas: Visualized portions of the pancreas are sonographically normal. IMPRESSION: 1. Ill-defined cystic/solid heterogeneous mass in the right hepatic lobe with calcifications measuring 5 x 4.3 x 3.9 cm which is indeterminate. Differential includes a benign or malignant neoplasm versus a phlegmon. Recommend a CT or MRI (liver mass protocol) for further evaluation. 2. Heterogeneous liver parenchyma which is nonspecific and may be seen in the setting of parenchymal disease. 3. Mild gallbladder wall thickening/trace pericholecystic fluid which is favored to be reactive given the gallbladder is nondistended. No biliary ductal dilatation. If there is clinical suspicion for acute cholecystitis, a HIDA scan can be performed. Dictated by: Dewey Landry M.D. on 10/29/2023 at 12:44 Approved by: Dewey Landry M.D. on 10/29/2023 at 12:49
[2023-10-29] MEDS: ACETAMINOPHEN 325 MG TABLET 650 MG PO (10:51)
--- NOTE | 2023-10-29 11:37 | PM.PN.1 ---
Subjective Subjective Interval history: More RUQ / epigastric pain today. Not necessarily related to meals. Fever today despite cefepime. Rising AST/ALT and bili today. Repeat RUQ US ordered to r/o cholecystitis. Exam Vital Signs (past 8 hours): - 10/29/23 04:00 10/29/23 08:00 10/29/23 10:00 Temperature 98.6 F 100.1 F H 102.1 F H Pulse Rate 70 75 Respiratory Rate 17 16 Blood Pressure 127/70 149/75 H Pulse Oximetry 94 93 Oxygen Flow Rate 0 10/29/23 10:51 Temperature 102.1 F H Pulse Rate Respiratory Rate Blood Pressure Pulse Oximetry Oxygen Flow Rate Oxygen Delivery Method Room Air Oxygen Flow Rate 0 Narrative Exam Narrative: Gen: WDWN male, NAD CV: RRR no m/r/g Pulm: CTA b/l Abd: Soft, non-distended, RUQ and epigastric tenderness. Ext: no edema. Objective Labs 10/29/23 07:57 10/29/23 07:57 Labs: Laboratory Results - last 24 hr 10/29/23 10/29/23 05:35 07:57 WBC 13.9 H RBC 4.35 L Hgb 12.4 L Hct 37.7 L MCV 86.7 MCH 28.6 MCHC 33.0 RDW 13.4 Plt Count 117 L Neut % (Auto) 82.7 H Lymph % (Auto) 7.7 L [place] % (Auto) 8.0 Eos % (Auto) 1.1 L Baso % (Auto) 0.5 Neut # (Auto) 41845 H Lymph # (Auto) 1100 [place] # (Auto) 1100 H Eos # (Auto) 200 Baso # (Auto) 100 Sodium 136 L Potassium 3.7 Chloride 107 Carbon Dioxide 24 BUN 13 Creatinine 0.65 L Estimated GFR > 60 BUN/Creatinine Ratio 20.0 Glucose 236 H Calcium 8.5 Magnesium 2.3 Total Bilirubin 1.4 H AST 180 H ALT 278 H Alkaline Phosphatase 136 H Total Protein 6.2 L Albumin 3.4 L Globulin 2.8 Albumin/Globulin Ratio 1.2 Vancomycin Peak < 5.0 L Vancomycin Trough < 5.0 L PFSH Medical History (Updated 10/28/23 @ 02:42 by Luis Marshall MD) Diabetes Glucosuria BPH w urinary obs/LUTS Elevated PSA COVID-19 Social History household members: family Smoking Status: Never smoker alcohol intake: former Assessment & Plan Assessment & Plan narrative: (1) Sepsis secondary to acute cystitis (possibly cholecystitis) with hypotension and thrombocytopenia, elevated bilirubin. - urine and blood cultures pending. Respriatory panel negative. 1-5 RBC on UA, and bladder wall thickening with BPH suggests acute cystitis as the underlying etiology however rising AST/ALT and bili today. Will get a RUQ US, possibly was early cholecystitis vs cholangitis. If negative US, consider MR abdomen of hypodense liver lesion seen on initial CT. - follow up cultures - continue cefepime 2g q12 for now - continue IV fluids today, BP soft. - WBC did increase from normal to 15 today. Procalcitonin elevated. - also with daughter with COVID, may be false negative result, consider retesting after 48 hours. (2) BPH w urinary obs/LUTS: - continue flomax (3) Diabetes: - okay to continue metformin, low dose sliding scale insulin also ordered. Code: Full, surrogate is patient's daughter DVT: Lovenox daily I have utilized all available immediate resources to obtain, update, or review the patient's current medications. Dispo: patient admitted under inpatient status. Discharge possibly in 2-3 days depending on above evaluation and determinantion of source. Additional history obtained via discussions with the overnight provider, bedside nursing staff, and case management. These discussions contributed to the creation of the above assessment and plan. I have reviewed patient's presenting documentation, labs, and imaging personally. Time-Based Coding :: [TOTAL MINUTES] spent with patient and on the chart (including review of chart, obtaining history, exam, reviewing outside data, placing orders, documenting exam and treatment plan, and counseling patient) on [DATE]. Quality VTE Deep Vein Thrombosis/Pulmonary Embolism Present on Admission: No
[2023-10-29] MEDS: KETOROLAC 30 MG/ML VIAL 15 MG IV ×2 (16:33→22:01)
[2023-10-29] MEDS: TAMSULOSIN 0.4 MG CAPSULE PO (21:44)
[2023-10-29] MEDS: SIMETHICONE 80 MG TABLET PO (23:41)
[2023-10-29] MEDS: CALCIUM CARBONATE 500 MG TAB PO (23:42)
[2023-10-30] VITALS (25 sets, daily range): BP systolic 134–185; BP diastolic 62–95; PULSE 71–86; RESP 16–20; TEMP 37–39.4; O2SAT 88–98
[2023-10-30] MEDS: SODIUM CHLORIDE 0.9% 1,000 ML 100 ML IV ×3 (00:07→23:41)
[2023-10-30] MEDS: CEFEPIME 2 GM in SODIUM CHLORIDE 0.9% 100 ML IV ×2 (05:12→17:01)
[2023-10-30] MEDS: ACETAMINOPHEN 325 MG TABLET 650 MG PO ×3 (05:20→23:43)
[2023-10-30 05:34] LABS: Prothrombin Time 11.7 SECONDS (9.4-12.5)
[2023-10-30 05:37] LABS: PTT Partial Thromboplastin Tim 34 SECONDS (25.1-36.5)
--- NOTE | 2023-10-30 08:19 | P.PN_ITS ---
Subjective Subjective Interval history: Interval summary: 63 M admitted with high fever, no obvious source but some bladder thickening. Initially improved on cefepime. Spiked another fever to 103 today, AST/ALT and bili up. Initial CT with a ? hemangioma. Did US abd 10/28, not likely cholecystitis, but there is cystic and solid components to the liver lesion. Did MRI and radiologist thought it might be an abscess. radiology to do an US guided aspiration 10/29. S: Low-grade fever overnight. No abdominal pain. No recent urinary symptoms. A negative urine culture. Scheduled for a liver aspiration today. Exam Vital Signs (past 8 hours): - 10/30/23 05:20 10/30/23 05:20 10/30/23 06:41 Temperature 100.4 F H 100.4 F H 99.8 F H Pulse Rate 76 Respiratory Rate 17 Blood Pressure 139/71 Pulse Oximetry 92 Oxygen Flow Rate 0 Oxygen Delivery Method Room Air Oxygen Flow Rate 0 Narrative Exam Narrative: NAD, alert and oriented. Fluent speech. Lungs are clear, normal rate and effort. Heart is regular, no murmur gallop or rub. Abdomen is soft, non distended. No right upper quadrant tenderness. Extremities are free of edema. Objective Labs 10/29/23 07:57 10/29/23 07:57 Labs: Laboratory Results - last 24 hr 10/29/23 10/30/23 07:57 04:00 WBC 13.9 H RBC 4.35 L Hgb 12.4 L Hct 37.7 L MCV 86.7 MCH 28.6 MCHC 33.0 RDW 13.4 Plt Count 117 L Neut % (Auto) 82.7 H Lymph % (Auto) 7.7 L [place] % (Auto) 8.0 Eos % (Auto) 1.1 L Baso % (Auto) 0.5 Neut # (Auto) 45898 H Lymph # (Auto) 1100 [place] # (Auto) 1100 H Eos # (Auto) 200 Baso # (Auto) 100 PT 11.7 INR 1.0 APTT 34 Sodium 136 L Potassium 3.7 Chloride 107 Carbon Dioxide 24 BUN 13 Creatinine 0.65 L Estimated GFR > 60 BUN/Creatinine Ratio 20.0 Glucose 236 H Calcium 8.5 Magnesium 2.3 Total Bilirubin 1.4 H AST 180 H ALT 278 H Alkaline Phosphatase 136 H Total Protein 6.2 L Albumin 3.4 L Globulin 2.8 Albumin/Globulin Ratio 1.2 Vancomycin Peak < 5.0 L PFSH Medical History Diabetes Glucosuria BPH w urinary obs/LUTS Elevated PSA COVID-19 Social History household members: family Smoking Status: Never smoker alcohol intake: former Assessment & Plan Assessment & Plan narrative: 1. Sepsis secondary possible liver abscess with hypotension and thrombocytopenia, elevated bilirubin. - urine and blood cultures negative. Respriatory panel negative. Will get a RUQ US, possibly was early cholecystitis vs cholangitis. If negative US, consider MR abdomen of hypodense liver lesion seen on initial CT. - follow up cultures - continue cefepime 2g q12 for now - liver lesion aspiration today. 2. BPH w urinary obs/LUTS, present on admission and active. - continue flomax, monitor UOP. 3. Diabetes 2, present on admission and active. - okay to continue metformin, low dose sliding scale insulin also ordered. 4. Possible liver abscess, present on admission and active. PLAN: -continue antibiotics -follow cultures -aspiration of liver lesion to rule out abscess. Code: Full, surrogate is patient's daughter DVT: Lovenox daily Time-Based Coding :: [TOTAL MINUTES] spent with patient and on the chart (including review of chart, obtaining history, exam, reviewing outside data, placing orders, documenting exam and treatment plan, and counseling patient) on [DATE]. Quality VTE Deep Vein Thrombosis/Pulmonary Embolism Present on Admission: No
--- NOTE | 2023-10-30 08:50 | DI.US.S_ITS ---
PROCEDURE: US ASPIRATION CYST COMPARISON: None. INDICATIONS: drain liver abcess FINDINGS: An aspiration and core biopsy was performed of a lesion within the right hepatic lobe. The lesion was initially aspirated where 1 cc of bloody fluid was obtained. This was followed by a biopsy of the lesion and 3 core samples were obtained. IMPRESSION: Successful aspiration and biopsy of a lesion within the right hepatic lobe. The Dictated by: Glynn Ho M.D. on 10/30/2023 at 16:07 Approved by: Glynn Ho M.D. on 10/30/2023 at 16:11
[2023-10-30] MEDS: SODIUM CHLORIDE 0.9% FLUSH 10 ML IV ×2 (09:33→21:08)
--- NOTE | 2023-10-30 11:10 | CM.DPNOTE ---
DCP Cont Reviewed chart. Patient discussed in multidisciplinary rounds. Patient scheduled for aspiration of liver lesion to rule out abscess. Patient is expected to require ongoing IV abx. INS: Michael/AMANDEEP. ENE team following clinical course closely. Following for coordination of discharge plan. ELIOT
--- NOTE | 2023-10-30 13:42 | PATH_ITS ---
[facility] Accession Number: [id number] No. of containers..02 Tissue . 01 Material submitted: . PART A: liver - RIGHT LIVER LOBE PART B: liver - LIVER ABSCESS . 01 Clinical history: . ABSCESS . 01 Diagnosis: A. LIVER, RIGHT LOBE, NEEDLE CORE BIOPSY: Liver with chronic active inflammation, fibrin, and red blood cells, consistent with liver abscess. No evidence of neoplasm. . B. LIVER ABSCESS: Specimen forwarded for culture. [facility] 11/03/2023 1527 Local . 01 Electronically signed: . Bartolo Denise MD, PhD, Pathologist NPI- [id number] . 01 Gross description: . A. Received in formalin, labeled with two identifiers and liver abscess, are two collins needle cores measuring 0.4 cm and 0.7 cm in length. Submitted entirely in cassette A1. B. Sent for cultures per Dr. Reardon. ([id number]) /FRR 10/31/2023 1457 Local . 01 Pathologist provided ICD-10: K75.0 . 01 CPT . 167061 Specimen Comment: A courtesy copy of this report has been sent to [facility] Pathology Performed at: [address] [facility] [address] [place] [address], [place], [place] [id number] MD Jared Reardon MD Phone: [phone]
[2023-10-30] MEDS: METFORMIN HCL 500 MG TABLET 1000 MG PO (13:58)
[2023-10-30] MEDS: HYDROMORPHONE 0.5 MG INJ IV ×2 (14:30→21:15)
--- NOTE | 2023-10-30 16:10 | PC.NURSE ---
oral temp 102.9; Dr Cortez notified; tylenol 650mg po given
--- NOTE | 2023-10-30 18:23 | PC.NURSE ---
pt went to radiology for US aspiration of hepatic abcess; biopsies also done at that time; he came back to his room and had a 10lb sandbag to right abd/chest for 2 hours; pt placed on o2/2l/nc during this time; after 2 hours, sandbag removed but pt remained supine for another hour; after 3rd hour, orthostatic VS obtained; abd w/o any further distention, no discoloration or signs of bleeding; pt denied any complaints; up to chair; temp 102.[address] Cortez notified; tylenol 650mg po given
[2023-10-30] MEDS: INSULIN LISPRO 100 UNIT/ML 3ML VIAL SUBCUT (21:08)
[2023-10-30] MEDS: TAMSULOSIN 0.4 MG CAPSULE PO (21:08)
[2023-10-31] VITALS (7 sets, daily range): BP systolic 130–161; BP diastolic 64–83; PULSE 60–81; RESP 16–18; TEMP 36.9–37.7; O2SAT 92–96
[2023-10-31 04:35] LABS: Hematocrit 33.4 % (41-53); Hemoglobin 11.3 g/dL (13.5-17.5); Mean Corpuscular HGB Conc 33.9 % (30-36); Mean Corpuscular Hemoglobin 28.8 PG (26-34); Mean Corpuscular Volume 84.8 fL (80-100); Platelet Count 179 X10^3/uL (150-400); Red Blood Cell Count 3.94 X10^6/uL (4.5-5.9); Red Cell Distribution Width 13.3 % (11.6-14.8)
[2023-10-31 04:42] LABS: INR 1.1 (0.9-1.3); Prothrombin Time 12.4 SECONDS (9.4-12.5)
[2023-10-31 04:44] LABS: PTT Partial Thromboplastin Tim 27 SECONDS (25.1-36.5)
[2023-10-31 05:01] LABS: Neutrophils Absolute Manual 7800 /uL (3000-5900); Total Cells Counted 100
[2023-10-31 05:02] LABS: BUN Creatinine Ratio 16.9 (6-22); Blood Urea Nitrogen 11 mg/dL (9-20); Calcium 8.1 mg/dL (8.4-10.2); Carbon Dioxide 27 mmol/L (22-32); Chloride 105 mmol/L (98-107); Estimated Glomerular Filt Rate > 60 mL/min (>60); Glucose 171 mg/dL (80-110); HEMOLYSIS < 15 (0-50); Potassium 3.3 mmol/L (3.4-5.1); RBC Morphology Normal Morphology; Sodium 135 mmol/L (137-145)
[2023-10-31] MEDS: CEFEPIME 2 GM in SODIUM CHLORIDE 0.9% 100 ML IV (05:35)
--- NOTE | 2023-10-31 08:16 | PM.PN.1 ---
Subjective Subjective Interval history: Interval summary: 63 M admitted with high fever, no obvious source but some bladder thickening. Initially improved on cefepime. Spiked another fever to 103 today, AST/ALT and bili up. Initial CT with a ? hemangioma. Did US abd 10/28, not likely cholecystitis, but there is cystic and solid components to the liver lesion. Did MRI and radiologist thought it might be an abscess. radiology did an US guided aspiration 10/29. Polys on GS. S: He was doing well today. He was some right upper quadrant pain. No nausea. Had a low-grade fever last night. Exam Vital Signs (past 8 hours): - 10/31/23 04:53 Temperature 98.4 F Pulse Rate 73 Respiratory Rate 17 Blood Pressure 130/64 Pulse Oximetry 95 Oxygen Delivery Method Room Air Oxygen Flow Rate 0 Narrative Exam Narrative: NAD, alert and oriented. Fluent speech. Lungs are clear, normal rate and effort. Heart is regular, no murmur gallop or rub. Abdomen is soft, non distended. Extremities are free of edema. Objective Labs 10/31/23 04:10 10/31/23 04:10 Labs: Laboratory Results - last 24 hr 10/31/23 04:10 WBC 10.0 RBC 3.94 L Hgb 11.3 L Hct 33.4 L MCV 84.8 MCH 28.8 MCHC 33.9 RDW 13.3 Plt Count 179 Total Counted 100 Seg Neutrophils % 78.0 H Lymphocytes % (Manual) 15.0 L Monocytes % (Manual) 6.0 Basophils % (Manual) 1.0 Neutrophils # (Manual) 7800 H RBC Morphology Normal morphology PT 12.4 INR 1.1 APTT 27 D Sodium 135 L Potassium 3.3 L Chloride 105 Carbon Dioxide 27 BUN 11 Creatinine 0.65 L Estimated GFR > 60 BUN/Creatinine Ratio 16.9 Glucose 171 H Calcium 8.1 L PFSH Medical History Diabetes Glucosuria BPH w urinary obs/LUTS Elevated PSA COVID-19 Social History household members: family Smoking Status: Never smoker alcohol intake: former Assessment & Plan Assessment & Plan narrative: 1. Probable liver abscess, present on admission and active. 2. Sepsis, present on admission and improved. 3. BPH with obstructive symptoms, present on admission and active. 4. DM 2, present on admission and active. PLAN: -continue antibiotics, discuss with Infectious Disease today. -follow cultures from liver aspiration. WBCs were seen with no organisms on Gram stain. Patient has been on antibiotics. -discharge planning, patient will likely require empiric IV antibiotics and access for such. Anticipate a PICC line. Time-Based Coding :: 25 min spent with patient and on the chart (including review of chart, obtaining history, exam, reviewing outside data, placing orders, documenting exam and treatment plan, and counseling patient) on 10/30. Quality VTE Deep Vein Thrombosis/Pulmonary Embolism Present on Admission: No
[2023-10-31] MEDS: SODIUM CHLORIDE 0.9% FLUSH 10 ML IV ×2 (08:54→20:49)
[2023-10-31] MEDS: ENOXAPARIN 40 MG/0.4 ML SYRINGE SUBCUT (08:54)
[2023-10-31] MEDS: METFORMIN HCL 500 MG TABLET 1000 MG PO (08:54)
[2023-10-31] MEDS: POTASSIUM CHLORIDE 20 MEQ TAB 40 MEQ PO (08:54)
[2023-10-31] MEDS: INSULIN LISPRO 100 UNIT/ML 3ML VIAL SUBCUT ×2 (11:55→20:48)
[2023-10-31] MEDS: DOCUSATE 100 MG CAPSULE PO ×2 (11:55→20:40)
[2023-10-31] MEDS: polyethylene glycoL 3350 17 GM POWD.PACK PO (11:55)
[2023-10-31] MEDS: ACETAMINOPHEN 325 MG TABLET 650 MG PO ×2 (12:38→23:37)
[2023-10-31] MEDS: SIMETHICONE 80 MG TABLET PO ×2 (12:38→20:28)
[2023-10-31] MEDS: PIPERACILLIN/TAZO 3.375 GM in SODIUM CHLORIDE 0.9% 100 ML IV ×2 (14:06→20:29)
[2023-10-31 16:25] LABS: Adenovirus F 40/41 Not Detected (Not Detect); Astrovirus Not Detected (Not Detect); Campylobacter Not Detected (Not Detect); Clostridium difficile toxin AB Not Detected (Not Detect); Cryptosporidium Not Detected (Not Detect); Cyclospora cayetanensis Not Detected (Not Detect); Entamoeba histolytica Not Detected (Not Detect); Enteroaggregative E.coli Not Detected (Not Detect); Enteropathogenic E.coli Detected (Not Detect); Enterotoxigenic E.coli It/st Detected (Not Detect); Giardia lamblia Not Detected (Not Detect); Norovirus GI/GII Not Detected (Not Detect); Plesiomonsa shigelloides Not Detected (Not Detect); Rotavirus A Not Detected (Not Detect); Salmonella Not Detected (Not Detect); Sapovirus Not Detected (Not Detect); Shiga-like toxin-prod E.coli Not Detected (Not Detect); Shigella/Enteroinvasive E.coli Not Detected (Not Detect); Vibrio Not Detected (Not Detect); Vibrio cholerae Not Detected (Not Detect); Yersinia enterocolitica Not Detected (Not Detect)
[2023-10-31] MEDS: HYDROMORPHONE 0.5 MG INJ IV (20:28)
[2023-10-31] MEDS: CALCIUM CARBONATE 500 MG TAB PO (20:28)
[2023-10-31] MEDS: TAMSULOSIN 0.4 MG CAPSULE PO (20:40)
[2023-11-01 04:35] VITALS: BP 132/70; PULSE 67; RESP 16; TEMP 36.9; O2SAT 93
[2023-11-01 05:08] LABS: INR 1.1 (0.9-1.3); Prothrombin Time 12.5 SECONDS (9.4-12.5)
[2023-11-01 05:10] LABS: PTT Partial Thromboplastin Tim 33 SECONDS (25.1-36.5)
[2023-11-01 05:12] LABS: Hemoglobin 12.7 g/dL (13.5-17.5); Mean Corpuscular HGB Conc 34.2 % (30-36); Mean Corpuscular Hemoglobin 29.1 PG (26-34); Platelet Count 218 X10^3/uL (150-400); Red Blood Cell Count 4.35 X10^6/uL (4.5-5.9); Red Cell Distribution Width 13.4 % (11.6-14.8); White Blood Cell Count 10.8 X10^3/uL (4.5-11.0)
[2023-11-01] MEDS: PIPERACILLIN/TAZO 3.375 GM in SODIUM CHLORIDE 0.9% 100 ML IV (05:14)
[2023-11-01 05:16] LABS: BUN Creatinine Ratio 13.4 (6-22); Blood Urea Nitrogen 9 mg/dL (9-20); Calcium 8.8 mg/dL (8.4-10.2); Carbon Dioxide 27 mmol/L (22-32); Chloride 101 mmol/L (98-107); Estimated Glomerular Filt Rate > 60 mL/min (>60); Glucose 157 mg/dL (80-110); HEMOLYSIS < 15 (0-50); Potassium 3.5 mmol/L (3.4-5.1); Sodium 135 mmol/L (137-145)
[2023-11-01 06:04] LABS: Neutrophils Absolute Manual 7344 /uL (3000-5900); Total Cells Counted 100
[2023-11-01 06:05] LABS: RBC Morphology Normal Morphology
[2023-11-01 08:00] VITALS: BP 145/74; PULSE 64; RESP 20; TEMP 36.9; O2SAT 94
[2023-11-01] MEDS: DOCUSATE 100 MG CAPSULE PO (08:38)
[2023-11-01] MEDS: ENOXAPARIN 40 MG/0.4 ML SYRINGE SUBCUT (08:38)
[2023-11-01] MEDS: INSULIN LISPRO 100 UNIT/ML 3ML VIAL SUBCUT ×2 (08:38→12:28)
[2023-11-01] MEDS: SODIUM CHLORIDE 0.9% FLUSH 10 ML IV (08:39)
[2023-11-01] MEDS: polyethylene glycoL 3350 17 GM POWD.PACK PO (08:39)
[2023-11-01] MEDS: METFORMIN HCL 500 MG TABLET 1000 MG PO (08:40)
[2023-11-01] MEDS: CALCIUM CARBONATE 500 MG TAB PO (08:55)
--- NOTE | 2023-11-01 11:35 | PM.DS.1 ---
History of Present Illness History of Present Illness Chief complaint: shaking, cold Narrative: From H&P: 63 y/o with PMH of DM, BPH on Flomax, developed generalized weakness, myalgia and fever and chills over the past 3 days. He was exposed to daughter who was sick with Covid but on admission respiratory panel is negative. He is tachycardic and hypotensive with elevated LA and procalcitonin and w/o obvious source. Denies GI or symptoms. He was treated with IVFs and empiric abx and was placed in observation Discharge Providers Provider Date of admission: 10/27/23 19:56 Discharge Date: 11/01/23 Primary care physician: FREEDOM Erazo-Bailey Consults: Telephone advice from infectious diseases, [facility]. Discharge provider: Tito Cortez MD Summary Hospital Course Discharge Diagnosis: 1. Probable liver abscess, present on admission and active. 2. Sepsis, present on admission and improved. 3. BPH with obstructive symptoms, present on admission and active. 4. DM 2, present on admission and active. Hospital Course: The patient presented with fevers and shakes. Initially imaging revealed normal lungs. The patient had a bladder wall that was thickened with a negative urine culture. Blood cultures were obtained x2 which were also negative. The patient was treated with empiric antibiotics and a lesion was noted in the liver that was felt to represent a hemangioma versus inflammatory focused. MR of the liver was more suggestive of phlegmon versus a abscess. This was aspirated on Thursday, October 29. There are white cells but no bacteria on Gram stain. The patient had cefepime and change to Zosyn for better anaerobic coverage and his low-grade fever improved. He would some right upper quadrant pain from his biopsy site but his H&H remained stable. He was discussed with Dr. Moore, infectious Disease at [facility] on October 30 and . He felt it would be reasonable to discharge the patient with oral antibiotics, close Infectious Disease follow up and a repeat CT of the abdomen in 1-2 weeks. At the time of discharge, aerobic cultures were no growth and anaerobic were pending. Blood cultures were negative. Urine culture had 3 or more colony types. Amoeba serology sent and pending ([facility] sendout). Status at Discharge Cognitive/behavioral status at discharge: oriented Functional status at discharge: independent ambulation Overall status at discharge: patient is back to baseline Time Spent with Patient Time spent: Greater than 30 minutes Exam Vital Signs (past 8 hours): - 11/01/23 04:35 11/01/23 08:00 Temperature 98.4 F 98.4 F Pulse Rate 67 64 Respiratory Rate 16 20 Blood Pressure 132/70 145/74 H Pulse Oximetry 93 94 Oxygen Flow Rate 0 Oxygen Delivery Method Room Air Oxygen Flow Rate 0 Narrative Exam Narrative: NAD, alert and oriented. Fluent speech. Lungs are clear, normal rate and effort. Heart is regular, no murmur gallop or rub. Abdomen is soft, non distended. Some right upper quadrant tenderness with palpation. Extremities are free of edema. Objective Imaging Multiple studies:: Radiologist's impression: Chest x-ray: No acute cardiopulmonary abnormality is seen. CT abdomen and pelvis: 1. No acute findings within the abdomen or pelvis to explain patient's symptoms. 2. Diverticulosis without evidence of acute diverticulitis. Normal appendix. 3. Indeterminate low-attenuation structure within the right hepatic lobe measuring 4.8 cm. This may represent a meningioma. Recommend contrast enhanced MRI liver protocol for further evaluation. Liver MRI: 1. T2 heterogeneous lesion in the right liver with peripheral enhancement and restricted diffusion. Suspect hepatic phlegmon or developing abscess in this patient with sepsis. 2. Small right pleural effusion, increased. 3. Diverticulosis. The appendix is not dilated. Gallbladder ultrasound: 1. Ill-defined cystic/solid heterogeneous mass in the right hepatic lobe with calcifications measuring 5 x 4.3 x 3.9 cm which is indeterminate. Differential includes a benign or malignant neoplasm versus a phlegmon. Recommend a CT or MRI (liver mass protocol) for further evaluation. 2. Heterogeneous liver parenchyma which is nonspecific and may be seen in the setting of parenchymal disease. 3. Mild gallbladder wall thickening/trace pericholecystic fluid which is favored to be reactive given the gallbladder is nondistended. No biliary ductal dilatation. If there is clinical suspicion for acute cholecystitis, a HIDA scan can be performed. Labs 11/01/23 04:15 11/01/23 04:15 Labs: Laboratory Results - last 24 hr 10/31/23 11/01/23 15:03 04:15 WBC 10.8 RBC 4.35 L Hgb 12.7 L Hct 37.0 L MCV 85.0 MCH 29.1 MCHC 34.2 RDW 13.4 Plt Count 218 Total Counted 100 Seg Neutrophils % 59.0 Band Neutrophils % 9.0 H Lymphocytes % (Manual) 16.0 L Monocytes % (Manual) 10.0 Eosinophils % (Manual) 3.0 Metamyelocytes % 3.0 H Neutrophils # (Manual) 7344 H RBC Morphology Normal morphology PT 12.5 INR 1.1 APTT 33 D Sodium 135 L Potassium 3.5 Chloride 101 Carbon Dioxide 27 BUN 9 Creatinine 0.67 Estimated GFR > 60 BUN/Creatinine Ratio 13.4 Glucose 157 H Calcium 8.8 Stl C. cayetanensis PCR Not detected Stool Rotavirus (PCR) Not detected Stool Adenovirus (PCR) Not detected Stool Astrovirus (PCR) Not detected Stool Cryptosporidium PCR Not detected Stl E.coli Shiga Tox PCR Not detected St Sh/Enteroin Ecoli PCR Not detected Stl Enterotoxigenic E PCR Detected Stool EPEC (PCR) Detected Stl E. histolytica PCR Not detected Stool Giardia Lamblia PCR Not detected Stool Sapovirus (PCR) Not detected Stl P. shigelloides PCR Not detected St Y.enterocolitica PCR Not detected Stool Vibrio (PCR) Not detected Stl Vibrio cholerae PCR Not detected Stl Enteroaggr Ecoli PCR Not detected Stl Norovirus GI/GII PCR Not detected Campylobacter (PCR) Not detected C. difficile Tox (PCR) Not detected Salmonella (PCR) Not detected PFSH Medical History Diabetes Glucosuria BPH w urinary obs/LUTS Elevated PSA COVID-19 Social History household members: family Smoking Status: Never smoker alcohol intake: former Discharge Assessment & Plan Assessment and Plan Assessment: 1. Probable liver abscess, present on admission and active. 2. Sepsis, present on admission and improved. 3. BPH with obstructive symptoms, present on admission and active. 4. DM 2, present on admission and active. Plan of Treatment: Discharge home on Augmentin and levofloxacin for 21 days. Infectious Disease (Dr. Moore) will contact the patient with an appointment in follow up. Discharge Plan Discharge Plan Patient Disposition: Home Provider Discharge Comment: Stable for discharge home on oral antibiotics and close follow up with Infectious Disease, Dr. Moore at [facility]. They have been assisting with the case and will call with a follow up appointment. Discharge orders & Medications Prescriptions: New levofloxacin 750 mg tablet 750 mg PO DAILY Qty: 21 0RF amoxicillin-pot clavulanate 875-125 mg tablet 1 tab PO BID Qty: 42 0RF oxycodone 5 mg capsule 5 mg PO TID PRN (Reason: pain) Qty: 14 0RF Continued metformin 1,000 mg Tablet 1,000 mg PO DAILY tamsulosin [Flomax] 0.4 mg capsule 0.4 mg PO BEDTIME Follow up/Referrals: Miscellaneous,Doctor, [Non-Staff] - Liya Grant FNP-C [Primary Care Provider] - Visit Report/Discharge Packet Instructions: Intra-Abdominal Abscess Stand Alone Forms: Patient Portal/API Discharge Data Primary Care Provider: Liya Grant Quality VTE Deep Vein Thrombosis/Pulmonary Embolism Present on Admission: No
[2023-11-01 12:00] VITALS: BP 112/65; PULSE 71; RESP 20; TEMP 37; O2SAT 96
[2023-11-01] MEDS: POTASSIUM CHLORIDE 20 MEQ TAB 40 MEQ PO (12:28)
--- NOTE | 2023-11-01 12:41 | CM.DPC ---
DCP Discharge Home Per MD, after further discussion with ID MD at [facility] recommendation that pt can d/c home on PO abx and await further culture results and outpt f/u with [facility] ID MD. VERONICA faxed clinicals to [facility] ID clinic to review for outpt f/u. Per Rn, discharge instructions provided and no concerns noted and family arrived to transport. SAMIR Gross
--- NOTE | 2023-11-01 13:13 | PC.NURSE ---
Discharge Note Patient A&O, VSS, RA, no complaints of pain/discomfort. Discharge packet reviewed with patient, all questions/concerns addressed. PIV/TELE discontinued. Patient able to dress self and pack all belongings. Patient taken down to POV accompanied by family members.
--- NOTE | 2023-11-02 07:38 | PC.WOUNDPHOT ---
Late Entry: Photos taken 10/27 at 2104.
== END 2023-11-01 13:00 | disposition home or self-care (01) | DRG 871 ==
LOC: ED 19:50 → ICU 20:22 → AC 10-28 09:33
PROVIDERS: Emergency Medicine; Hospitalist; Internal Medicine; Admitting Provider Internal Medicine; Emergency Provider Emergency Medicine; PCP Nurse Practitioner Family; Referring Provider Emergency Medicine; Visit Provider Internal Medicine
DX: A41.9 Sepsis, unspecified organism (principal); K75.0 Abscess of liver; N13.8 Other obstructive and reflux uropathy; N40.1 Benign prostatic hyperplasia with lower urinary tract symptoms; E11.9 Type 2 diabetes mellitus without complications; D69.6 Thrombocytopenia, unspecified; E80.6 Other disorders of bilirubin metabolism; Z79.84 Long term (current) use of oral hypoglycemic drugs
CPT/HCPCS: 10005; 36415; 71045; 74177; 74183; 76705; 80048; 80053; 80202; 81003; 81015; 82962; 83605; 83690; 83735; 84145; 85025; 85610; 85730; 87040; 87070; 87075; 87086; 87205; 87507; 87633; 87797; 93005; 93010; 96365; 96367; 96375; 99284; 99285; A9579; J0136; J0692; J0696; J1170; J1650; J1815; J1885; J2470; J2543; Q9967

== ENCOUNTER → 2024-10-05 07:15 | Outpatient (CLI) | payer MEDICARE, SELFPAY ==
[2023-10-27 20:05] VITALS: BMI 27.1
--- NOTE | 2024-10-05 07:17 | DI.MRI.S_ITS ---
PROCEDURE: MR PELVIC PROSTATE PROTOCOL INDICATIONS: 64 y/o M w/ an elevated PSA, please eval TECHNIQUE: Coronal HASTE, axial T1 FSE with fat saturation, 3-plane nonbreath-hold T2 FSE. After the administration of contrast, dynamic axial, delayed axial and coronal VIBE or 2-D FLASH with fat saturation through the pelvis. Diffusion weighted imaging and ADC was performed. COMPARISON: [facility], CT, CT ABDOMEN PELVIS WITH CONTRAST, 12/08/2023, 10:06. FINDINGS: Image quality: Prostate: Gland size is 6.9 x 5.3 x 4.1 cm; ellipsoid gland volume is 78 mL. No significant foci of intrinsic T1 hyperintensity to suggest hemorrhage. Multiple BPH nodules. Median lobe hypertrophy. No significant areas of ADC hypointensity in the peripheral zone. No suspicious foci of the T2 hypointense signal in the transitional zone. No PI-RADS 4 or 5 observations. Genitourinary system: Bladder wall thickness is normal. Distal ureters are non distended. Bowel and peritoneum: No pathologic free pelvic fluid. Inferior colon and small bowel loops are normal in caliber. Diverticulosis. Normal appendix. Nodes and vessels: No pelvic or inguinal adenopathy by size criteria. Iliac vessels are normal in caliber. Soft tissues: No inguinal hernias. Bones: Marrow demonstrates normal overall signal, without lesions to suggest metastases. IMPRESSION: 1. Marked prostatomegaly. Median lobe hypertrophy. Multiple BPH nodules. 2. No PI-RADS 4 or 5 observations. 3. No enlarged lymph nodes. Dictated by: Ulises Fox M.D. on 10/05/2024 at 14:20 Approved by: Ulises Fox M.D. on 10/05/2024 at 14:30
== END ==
LOC: MRI 07:17
PROVIDERS: Referring Provider Urology; Visit Provider Urology
DX: N40.2 Nodular prostate without lower urinary tract symptoms (principal); R97.20 Elevated prostate specific antigen [PSA]
CPT/HCPCS: 72197; A9579

== ENCOUNTER → 2025-01-26 17:14 | Outpatient (CLI) | payer MEDICARE, SELFPAY ==
[2023-10-27 20:05] VITALS: BMI 27.1
[2025-01-26 19:06] LABS: Prostate Specific Antigen 5.54 ng/mL (0.10-4.00)
[2025-01-26 21:20] LABS: Appearance Urine UA CLEAR; Bilirubin Urine UA NEGATIVE (NEGATIVE); Color Urine UA YELLOW; Glucose Urine UA TRACE g/dL (Negative); Ketones Urine UA TRACE (NEGATIVE); Leukocyte Esterase Urine UA NEGATIVE (NEGATIVE); Nitrite Urine UA NEGATIVE (Negative); Occult Blood Urine UA NEGATIVE (Negative); Protein Urine UA NEGATIVE (Negative); Specific Gravity Urine UA 1.020 (1.000-1.035); Urobilinogen Urine UA 0.2 E.U./dL (0.2); pH Urine UA 6.0 (4.5-8.0)
[2025-01-26 21:38] LABS: Culture Indicated Urine Cult Not Indicated
== END ==
PROVIDERS: Referring Provider Urology; Visit Provider Urology
DX: N40.1 Benign prostatic hyperplasia with lower urinary tract symptoms (principal); N13.8 Other obstructive and reflux uropathy; R97.20 Elevated prostate specific antigen [PSA]
CPT/HCPCS: 36415; 81001; 84153